=== PATIENT | male | born 1975 | race Caucasian/White ===

== ENCOUNTER → 2023-01-18 | Outpatient (CLI) | payer OTHER, SELFPAY ==
[2023-01-18 12:28] LABS: Absolute Lymphocyte Count 2.18 X10^3/uL (0.83-4.51); Absolute Neutrophil Count 3.6 X10^3/uL (2.0-7.7); Basophil# 0.07 X10^3/uL; Eosinophil# 0.33 X10^3/uL; Eosinophils% 4.8 % (0-5); Hematocrit 46.9 % (40-54); Hemoglobin 16.1 g/dL (13.0-16.5); Lymphocyte # 2.18 X10^3/ul (0.83-4.51); Mean Corp Hgb Conc 34.3 g/dL (32-36); Mean Corpuscular Hgb 31.8 pg (27.0-32.0); Mean Corpuscular Volume 92.7 fL (80-94); Mean Platelet Vol. 10.7 fl (6.2-12.0); Monocyte# 0.58 X10^3/uL; Monocyte% 8.5 % (0-10); NRBC Flagged by Analyzer 0 % (0-5); Neutrophil # 3.64 X10^3/uL (2.7-7.7); Neutrophil % 53.6 % (47-70); Platelet Count 315 K/mm3 (150-450); RBC Distribution Width SD 41.4 fl (35.1-43.9); Red Blood Count 5.06 M/mm3 (4.6-6.2); White Blood Count 6.8 K/mm3 (4.4-11.0)
[2023-01-18 13:02] LABS: Vitamin B12 535 pg/mL (211-911); Vitamin D,25 Hydroxy 33.3 ng/mL
[2023-01-18 13:06] LABS: Hemoglobin A1c 5.4 % (3.8-5.6)
[2023-01-18 13:34] LABS: ALB/GLOB Ratio 1.1 RATIO (0.9-2.4); AST(SGOT) 23 U/L (15-37); Alanine Aminotransfer ALT/SGPT 31 U/L (16-61); Albumin, Serum 3.8 g/dL (3.2-5.0); Alkaline Phosphatase 80 U/L (45-117); Anion Gap 6 (5-15); BUN 14 mg/dL (7-18); BUN/Creat Ratio 10.1 RATIO (10-20); Calcium,Total 9.6 mg/dL (8.5-10.1); Chloride 108 mmol/L (98-107); Cholesterol 220 mg/dL (200); Creatinine, Serum 1.38 mg/dL (0.70-1.30); EST Glomerular Filtration Rate 58 mL/min (>60); Est Glom Filt Rate - Afr Amer 70 mL/min (>60); Globulin 3.6 g/dL (2.2-4.2); Glucose 111 mg/dL (74-106); High Density Lipoprotein 37 mg/dL; Magnesium 2.1 mg/dL (1.6-2.6); Potassium 3.9 mmol/L (3.5-5.1); Protein, Total 7.4 g/dL (6.4-8.2); Sodium Level 140 mmol/L (136-145); Thyroid Stim Hormone (TSH) 1.87 uIU/mL (0.358-3.74); Triglycerides 100 mg/dL; Very Low Density Lipoprotein 20 mg/dL (5-40)
== END | disposition home or self-care (01) ==
PROVIDERS: PCP Family Medicine; Referring Provider Family Medicine; Visit Provider Family Medicine
DX: Z00.00 Encounter for general adult medical examination without abnormal findings (principal)
CPT/HCPCS: 36415; 80053; 80061; 82306; 82607; 83036; 83735; 84443; 85025

== ENCOUNTER → 2024-01-04 | Outpatient (CLI) | payer OTHER, SELFPAY ==
--- NOTE | 2024-01-04 05:59 | ECHOD_ITS ---
Reason For Study: PAFIB Procedure This was a 2D Doppler, Color Flow transthoracic echocardiogram. Exam performed in department. Left Ventricle Normal LV size. Left ventricular systolic function is normal. The estimated ejection fraction is 60 %. No regional wall motion abnormalities noted. Right Ventricle Normal RV size. Normal systolic function. Atria Normal left atrium. Normal right atrium. Mitral Valve Equivocal mitral valve prolapse. Tricuspid Valve Normal tricuspid valve. Aortic Valve Trisinus/trileaflet aortic valve. Pulmonic Valve Normal pulmonic valve. Great Vessels Normal aortic root. The pulmonary artery is normal size. Normal inferior vena cava. Pericardium/Pleural No pericardial effusion. MMode/2D Measurements & Calculations LVIDd: 5.1 cm IVSd: 1.2 cm Ao root diam: 4.2 cm LVIDs: 3.3 cm LVPWd: 0.78 cm FS: 35.2 % LAV(MOD-bp): 34.7 ml LVAd ap4: 34.2 cm2 SV(MOD-sp4): 63.0 ml LAV(MOD-bp) Indexed: 13.5 ml/m2 LVLd ap4: 9.3 cm LAV(MOD-sp2): 45.4 ml EDV(MOD-sp4): 104.4 ml LAV(MOD-sp4): 26.2 ml EDV(sp4-el): 107.5 ml LVAs ap4: 19.3 cm2 LVLs ap4: 7.7 cm ESV(MOD-sp4): 41.3 ml ESV(sp4-el): 41.5 ml EF(MOD-sp4): 60.4 % EF(sp4-el): 61.4 % SV(sp4-el): 66.1 ml LA A4 area: 12.9 cm2 LA dimension(2D): 3.9 cm RA A4 area: 13.4 cm2 TAPSE: 2.1 cm Time Measurements MV dec time: 0.23 sec Doppler Measurements & Calculations MV E max seven: 66.2 cm/sec Lat Peak E' Seven: 12.6 cm/sec Med Peak E' Seven: 6.8 cm/sec MV A max seven: 53.9 cm/sec E/E' lat: 5.3 E/E' med: 9.8 MV E/A: 1.2 MV V2 max: 68.4 cm/sec Ao V2 max: 125.8 cm/sec MV max P.9 mmHg MV dec slope: 282.0 cm/sec2 Ao max P.3 mmHg MV V2 mean: 47.0 cm/sec Ao V2 mean: 84.7 cm/sec MV mean P.95 mmHg Ao mean P.4 mmHg MV V2 VTI: 24.9 cm Ao V2 VTI: 27.2 cm AV (velocity ratio): 0.97 LV V1 max: 114.5 cm/sec PA V2 max: 89.5 cm/sec TR max seven: 229.6 cm/sec LV V1 max P.2 mmHg PA V2 mean: 63.1 cm/sec TR max P.1 mmHg LV V1 mean P.9 mmHg LV V1 mean: 79.0 cm/sec LV V1 VTI: 26.5 cm ECHO/Echo Complete Interpretation Summary Normal LV size. Left ventricular systolic function is normal. The estimated ejection fraction is 60 %. Equivocal mitral valve prolapse. Ordering Physician: Connie Toro Referring Physician: Connie Toro Performed By: Ramona Stacy RCS
--- NOTE | 2024-01-04 17:50 | STRESSREP_ITS ---
Stress Test Report Exercise myocardial perfusion stress test. 48-year-old man with history of chest pain Stress protocol: Resting EKG demonstrates normal sinus rhythm with a rate of 72 bpm resting blood pressure is 126/88 mmHg. The patient exercised according to the regular [place] protocol for a total duration of 9 minutes and 30 seconds attaining a maximum h eart rate of [150 ] bpm which was 88% of maximum predicted heart rate; the maximum workload was 11.9 metabolic equivalents. At rest there were no ST or T wave changes noted to suggest ischemia and at peak exercise upsloping ST changes only were noted which did not meet the criteria for ischemia. No clinical angina was noted the test was terminated due to the target heart rate being achieved/fatigue. The peak blood pressure was 160/70 mmHg. Rate-pressure product was 23,000. Myocardial perfusion protocol. 15 mCi of technetium 99m sestamibi was injected at rest. The patient exercised according to regular [facility] protocol for total duration of 9-1/2 minutes and at peak exercise 45.0 mCi of technetium 99m sestamibi was injected stress images were obtained stress and rest images were reconstructed in comparing the short axis vertical long and horizontal long axis. Gated images were also obtained. Perfusion SPECT analysis: Review of the stress images demonstrate normal uptake of tracer noted in all areas of the myocardium. The resting images similarly demonstrate normal uptake of tracer noted in all areas of the myocardium. No areas of reversibility are noted to suggest ischemia no previous infarct was noted. Gated SPECT analysis: The gated ejection fraction is 69%. Conclusion: Normal exercise myocardial perfusion stress test at a high workload Preserved ejection fraction.
== END | disposition home or self-care (01) ==
PROVIDERS: PCP Family Medicine; Referring Provider Nurse Practitioner Gerontology; Visit Provider Nurse Practitioner Gerontology
DX: I48.0 Paroxysmal atrial fibrillation (principal); Z79.899 Other long term (current) drug therapy; I34.1 Nonrheumatic mitral (valve) prolapse
CPT/HCPCS: 78452; 93017; 93306; A9500; A4216

== ENCOUNTER → 2025-07-05 | Outpatient (CLI) | payer OTHER, SELFPAY ==
--- OUTSIDE RECORDS SUMMARY | 2025-07-05 09:20 | XMS RPT_ITS | CCD ---
Author Organization [facility] Care Team Providers Care Commercial Loan Underwriter Name Role Phone Dr. Paramjit Dillard Primary Care Provider Dr. Paramjit Dillard Referring Provider Dr. Kevin Evans Attending Provider Laine Galan DO A Primary Care Provider MELANIE MOORE Attending Unavailable JOE BERMUDEZ Referring Unavailable ADAMA, LAINE A Primary Care Unavailable ADAMA, LAINE A Primary Care Unavailable ADAMA, LAINE A Primary Care Unavailable ADAMA, LAINE A Primary Care Unavailable MELANIE MOORE Attending Unavailable ADAMA, LAINE A Primary Care Unavailable JOE BERMUDEZ Attending Unavailable MELANIE MOORE Referring Unavailable ADAMA, LAINE A Primary Care Unavailable Adama, Laine Referring Unavailable Adama, Laine Attending Unavailable Adama, Laine Primary Care Unavailable Medications Current Medications Medication Drug Class(es) Dates Sig (Normalized) Sig (Original) flecainide acetate 100 mg oral tablet (13 sources) Antiarrhythmic Start: 01-04-2018 End: 10-24-2022 take 100 mg by mouth twice daily Flecainide Active 100 MG PO TWICE A DAY 180 October 24, 2022 11:22am Start: 08-25-2013 End: 01-04-2018 take 200 mg by mouth twice daily Flecainide Discontinued 200 MG PO TWICE A DAY August 25, 2013 1:00am January 04, 2018 4:12pm take 50 mg by mouth twice daily FLECAINIDE ACETATE (FLECAINIDE ORAL) Take 50 mg by mouth two times a day. Active FLECAINIDE ACETA TE (FLECAINIDE ORAL) Take by mouth. 0 Active metoprolol tartrate 50 mg oral tablet (13 sources) beta-Adrenergic Lam Start: 08-25-2013 End: 10-17-2022 take 50 mg by mouth twice daily Metoprolol Tartrate Active 50 MG PO TWICE A DAY 180 October 17, 2022 5:44pm metoprolol tartr ate, short acting, (LOPRESSOR) 100 mg tablet Take 25 mg by mouth two times a day. Active End: 05-06-2024 METOPROLOL SUCCINATE ORAL Ta ke by mouth. 05/06/2024 Discontinued (Discontinued by Patient) METOPROLOL SUCCI JOSE ALEJANDRO ORAL Take by mouth. Active METOPROLOL SUCCI JOSE ALEJANDRO ORAL Take by mouth. 0 Active Completed/Discontinued Medications Medication Drug Class(es) Dates Sig (Normalized) Sig (Original) aspirin 325 mg oral tablet (1 source) Platelet Aggregation Inhibitor, Nonsteroidal Anti-inflammatory Drug Start: 11-09-2013 End: 10-14-2021 take 325 mg by mouth once daily Aspirin Discontinued 325 MG PO DAILY@0800 November 09, 2013 12:00am October 14, 2021 5:18pm calcium chloride 0.0014 meq/ml / potassium chloride 0.004 meq/ml / sodium chloride 0.103 meq/ml / sodium lactate 0.028 meq/ml injectable solution (1 source) Start: 08-19-2024 End: 08-19-2024 take 30 mL intravenously every hour 30 mL/hr, INTRAVENOUS, CONTINUOUS, Starting on Mon08/19/24 at 1030, Until Mon08/19/24 at 1117, Preprocedure cephalexin 500 mg oral capsule (2 sources) Cephalosporin Antibacterial Start: 02-05-2024 End: 02-10-2024 take 1 capsule by mouth four times daily cephALEXin (KEFLEX) 500 mg capsule Take 1 capsule by mouth four times daily for 5 days. 20 capsule 02/05/2024 02/10/2024 codeine phosphate 2 mg/ml / guaiFENesin 20 mg/ml oral solution (3 sources) Opioid Agonist Start: 09-18-2014 End: 05-06-2024 take 5-10 mL by mouth every six hours as needed for cough and cough codeine-guaiFENesi n (ROBITUSSIN AC) 10-100 mg/5 mL syrup Indications: Cough Take 5-10 mL by mouth four times daily as needed for Cough. May cause drowsiness. 120 mL 0 09/18/2014 05/06/2024 Discontinued (Discontinued by Patient) diphenhydrAMINE (1 source) Histamine-1 Receptor Antagonist Start: 08-19-2024 End: 08-19-2024 12.5-50 mg, INTRAVENOUS, DIRECTED, Starting on Mon08/19/24 at 1100, Until Mon08/19/24 at 1459, DOSING DIRECTED BY PHYSICIAN FOR PROCEDURAL SEDATION ONLY, Intraprocedure 1 ml fentaNYL 0.05 mg/ml injection (1 source) Opioid Agonist Start: 08-19-2024 End: 08-19-2024 25-100 mcg, INTRAVENOUS, DIRECTED, Starting on Mon08/19/24 at 1100, Until Mon08/19/24 at 1459, DOSING DIRECTED BY PHYSICIAN FOR PROCEDURAL SEDATION ONLY, Intraprocedure ibuprofen 200 mg oral tablet (1 source) Nonsteroidal Anti-inflammatory Drug Start: 11-09-2013 End: 01-01-2018 take 800 mg by mouth every six hours as needed Ibuprofen Discontinued 800 MG PO EVERY 6 HOURS NEEDED November 09, 2013 1:20pm January 01, 2018 10:30am 5 ml midazolam 1 mg/ml injection (1 source) Benzodiazepine Start: 08-19-2024 End: 08-19-2024 1-5 mg, INTRAVENOUS, DIRECTED, Starting on Mon08/19/24 at 1100, Until Mon08/19/24 at 1459, DOSING DIRECTED BY PHYSICIAN FOR PROCEDURAL SEDATION ONLY, Intraprocedure naproxen 500 mg oral tablet (3 sources) Nonsteroidal Anti-inflammatory Drug Start: 09-13-2015 End: 05-06-2024 take 1 tablet by mouth every twelve hours as needed naproxen (NAPROSYN) 500 mg tablet Take 1 tablet by mouth twice daily as needed (for pain/inflammation) . Take with food. 60 tablet 0 09/13/2015 05/06/2024 Discontinued (Discontinued by Patient) polyethylene glycol 3350 220485 mg / potassium chloride 2970 mg / sodium bicarbonate 6740 mg / sodium chloride 5860 mg / sodium sulfate 59915 mg powder for oral solution (1 source) Osmotic Laxative Start: 05-03-2024 End: 05-03-2024 peg 3350-Electrolytes (GOLYTELY) 236-22.74-6.74 -5.86 gram suspension Indications: Encounter for screening for malignant neoplasm of colon Take 4,000 mL by mouth one time only for 1 dose. Refer to printed prep instructions from your provider. 4000 mL 05/03/2024 05/03/2024 Problems Active Problems Problem Classification Problem Date Documented Da te Episodic/Chronic Cardiac dysrhythmias (1 source) Paroxysmal atrial fibrillation; Translations: [Paroxysmal atrial fibrillation] 05-03-2019 Chronic Disorders of lipid metabolism (1 source) Hyperlipidemia; Translations: [Hyperlipidemia, unspecified] 01-04-2018 Chronic Heart valve disorders (1 source) Mitral valve prolapse; Translations: [Nonrheumatic mitral (valve) prolapse] 01-01-2018 Chronic Other aftercare (1 source) H/O: high risk medication; Translations: [Other orthopedic mechanic (current) drug therapy] 01-01-2018 Episodic Other and unspecified benign neoplasm (1 source) Polyp of colon; Translations: [Polyp of colon, unspecified part of colon, unspecified type] Onset: 08-29-2024 Episodic Other injuries and conditions due to external causes (2 sources) Splinter in skin; Translations: [Other injury of unspecified body region, initial encounter] 02-05-2024 Episodic Other male genital disorders (1 source) Male erectile dysfunction, unspecified; Translations: [Male erectile dysfunction, unspecified] Onset: 07-02-2025 Chronic Other screening for suspected conditions (not mental disorders or infectious disease) (7 sources) Patient encounter status; Translations: [Encounter for screening for malignant neoplasm of colon] Onset: 08-19-2024 05-03-2024 Episodic Other upper respiratory infections (1 source) Acute upper respiratory infection; Translations: [Acute upper respiratory infection, unspecified] 10-20-2024 Episodic Residual codes; unclassified (1 source) Not up to date with immunizations; Translations: [Not up to date with diphtheria-tetanus vaccination] 02-05-2024 Episodic Past or Other Problems Problem Classification Problem Date Documented Da te Episodic/Chronic Other injuries and conditions due to external causes (1 source) Other injury of unspecified body region, initial encounter; Translations: [Splinter] Onset: 02-05-2024 Episodic Results Test Name Value Interpretation Reference Range Facility [facility] 10-20-2024 CNOV Office Visit (UCWSTR ) RICHIE VALIENTE ([id number]) 1975 M Date Time Provider Department 10/20/24 2:15 PM CHRISTINE MARRERO [facility] During your visit today, we recorded the following information about you: Temperature Pulse Respiration Blood pressure 97.9 degrees 65/minute 18/minute 120/78 Weight 134.4 kg Christine Marrero, MOLLY.PACS ADMINISTRATOR 10/20/2024 2:25 PM Signed CC: Patient presents with: Cough: Light headed, congestion, sob x 2 days HPI: Richie Valiente is a 48 year old male who presents to the office with complaint of chest congestion, head congestion, and cough, nonproductive for 2 days. Symptoms are staying the same. Associated symptoms includes nasal congestion and light headed. Denies body aches, sore throat, wheezing, dyspnea, fatigue, nausea, vomiting , and diarrhea. Treatments tried include nothing so far. with no relief of symptoms. Sick contacts: unknown. History of asthma, frequent episodes of bronchitis, chronic bronchitis, bronchiectasis or COPD: No The ROS is otherwise negative. The patient's pmh, medications, allergies, and past visits are reviewed. PHYSICAL EXAM: BP 120/78 Pulse 65 Temp 36.6 ?C (97.9 ?F) Resp 18 Wt 134.4 kg (296 lb 4.8 oz) SpO2 98% BMI 38.04 kg/m? General appearance: alert, cooperative, pleasant, in no acute distress Head: Normocephalic Eyes: EOM's intact, conjunctiva pink and moist, no icterus, sclera white, non-injected Ears: Right ear: External ear/canal- Normal, TM - clear with good landmarks. Left ear: External ear/canal- Normal, TM - clear with good landmarks Oropharynx:moist without lesions, No erythema, exudates or tonsillar hypertrophy. Heart: Negative. RRR without obvious murmur, gallop, or rubs. No ectopy. Lungs: clear to auscultation, without rales or wheeze, good air exchange PAST MEDICAL HISTORY Diagnosis Date Atrial fibrillation (HCC) MVP (mitral valve prolapse) PAST SURGICAL HISTORY Procedure Laterality Date SEPTOPLASTY ALLERGIES Patient has no known allergies. MEDICATIONS metoprolol tartrate, short acting, (LOPRESSOR) 100 mg tablet Take 25 mg by mouth two times a day. FLECAINIDE ACETATE (FLECAINIDE ORAL) Take 50 mg by mouth two times a day. FAMILY HISTORY Problem Relation Age of Onset other (oth) Mother diverticulosis Colon Polyps Father No Known Problems Brother Social History Tobacco Use Smoking status: Former Types: Cigarettes Vaping Use Vaping status: Never Used Substance Use Topics Alcohol use: Yes Comment: 3-4 times a week. Drug use: Never ASSESSMENT/PLAN: 1. URI, acute - ICD9: 465.9, ICD10: J06.9 Supportive therapy at this time. Does not want viral testing.. Potential red flag symptoms discussed with the patient. Reviewed appropriate action plan to take if red flag symptoms occur. Patient agreeable to treatment plan. Christine Marrero APRN.PACS ADMINISTRATOR Allergies As of Date: 10/20/2024 (No Known Allergies) Date Reviewed: 10/20/2024 Reviewed by: Rose Casiano MA - Fully Assessed Reason for Visit: Cough [28] Cmt: Light headed, congestion, sob x 2 days Primary Visit Diagnosis:URI, acute [J06.9] Prescriptions as of 10/20/2024 - metoprolol tartrate, short acting, (LOPRESSOR) 100 mg tablet Take 25 mg by mouth two times a day. - FLECAINIDE ACETATE (FLECAINIDE ORAL) Take 50 mg by mouth two times a day. Problem List As Of Date 10/20/2024 Noted Resolved Encounter for screening for malignant neoplasm *08/19/2024 Encounter Status:Closed by CHRISTINE MARRERO on 10/20/24 [facility] [id number] 08-19-2024 [id number] HNO ID: [id number] Author: LORAINE SANTANA RN Service: ? Author Type: Registered Nurse Type: [id number] Filed: 09/05/2024 10:24 Note Text: The patient received a copy of Colonoscopy discharge instructions that contain information for how to contact the physician who performed the procedure and when to seek medical care. Normal [facility] Colonoscopyon 08-19-2024 Colonoscopy [place] [facility] Gastrointestinal Endoscopy Patient Name: Richie Valiente Procedure Date: 08/19/2024 10:41 AM Date of : 1975 Admit Type: Outpatient Age: 48 Gender: Male Note Status: Finalized Procedure: Colonoscopy Indications: Screening for colorectal malignant neoplasm Providers: Joe Bermudez MD Patient Profile: This is a 48 year old male. Refer to note in patient chart for documentation of history and physical. Last Colonoscopy: none. The patient's first colonoscopy is today. Referring Physician: Melanie Moore (Referring MD) Medicines: Fentanyl 100 micrograms IV, Midazolam 5 mg IV, Diphenhydramine 50 mg IV Complications: No immediate complications. Estimated blood loss: Minimal. Requesting Provider: Procedure: Pre-Anesthesia Assessment: - Prior to the procedure, a History and Physical was performed, and patient medications and allergies were reviewed. The patient's tolerance of previous anesthesia was also reviewed. The risks and benefits of the procedure and the sedation options and risks were discussed with the patient. All questions were answered, and informed consent was obtained. Prior Anticoagulants: The patient has taken no anticoagulant or antiplatelet agents. ASA Grade Assessment: III - A patient with severe systemic disease. After reviewing the risks and benefits, the patient was deemed in satisfactory condition to undergo the procedure. After I obtained informed consent, the scope was passed under direct vision. Throughout the procedure, the patient's blood pressure, pulse, and oxygen saturations were monitored continuously. The Colonoscope was introduced through the anus and advanced to the cecum, identified by appendiceal orifice and ileocecal valve. The colonoscopy was performed without difficulty. The patient tolerated the procedure well. The quality of the bowel preparation was fair. The ileocecal valve, appendiceal orifice, and rectum were photographed. Moderate Sedation: The administration of moderate sedation was initiated at 10:47. Moderate (conscious) sedation was personally administered by the endoscopist. The following parameters were monitored: oxygen saturation, heart rate, blood pressure, respiratory rate, EKG, adequacy of pulmonary ventilation, and response to care. Total physician intraservice time was 36 minutes. Findings: The perianal and digital rectal examinations were normal. Pertinent negatives include normal sphincter tone. Two sessile polyps were found in the rectum and sigmoid colon. The polyps were small (4-6 mm) in size. These polyps were removed with a jumbo cold forceps. Resection and retrieval were complete. Non-bleeding internal hemorrhoids were found during retroflexion. The hemorrhoids were mild and small. The exam was otherwise without abnormality. Impression: - Preparation of the colon was fair. - Two small (4-6 mm) polyps in the rectum and in the sigmoid colon, removed with a jumbo cold forceps. Resected and retrieved. - Non-bleeding internal hemorrhoids. - The examination was otherwise normal. Recommendation: - Patient has a contact number available for emergencies. The signs and symptoms of potential delayed complications were discussed with the patient. Return to normal activities tomorrow. Written discharge instructions were provided to the patient. - Resume previous diet. - Continue present medications. - Await pathology results. - Repeat colonoscopy in 5 years for surveillance. - Return to nurse practitioner at appointment to be scheduled. Procedure Code(s): --- Professional --- 99410, Colonoscopy, flexible; with biopsy, single or multiple G0500, Moderate sedation services provided by the same physician or other qualified health care transitions manager performing a gastrointestinal endoscopic service that sedation supports, requiring the presence of an independent trained observer to assist in the monitoring of the patient's level of consciousness and physiological status; initial 15 minutes of intra-service time; patient age 5 years or older (additional time may be reported with 37159, as appropriate) 54534, Moderate sedation; each additional 15 minutes intraservice time Diagnosis Code(s): --- Professional --- Z12.11, Encounter for screening for malignant neoplasm of colon K64.8, Other hemorrhoids D12.8, Benign neoplasm of rectum D12.5, Benign neoplasm of sigmoid colon CPT copyright 2020 [employer]. All rights reserved. The codes documented in this report are preliminary and upon nurses supervisor review may be revised to meet current compliance requirements. Attending Participation: I personally performed the entire procedure. Scope In: 10:50:58 AM Scope Out: 11:03:02 AM MD Joe Kinney MD 08/19/2024 11:06:20 AM This report has been signed electronically by Joe Bermudez MD Number (more content not included)... Normal [facility] Colonoscopy Study observatio non 08-19-2024 [place] [facility] Gastrointestinal Endoscopy Patient Name: Richie Valiente Procedure Date: 08/19/2024 10:41 AM Date of : 1975 Admit Type: Outpatient Age: 48 Gender: Male Note Status: Finalized Procedure: Colonoscopy Indications: Screening for colorectal malignant neoplasm Providers: Joe Bermudez MD Patient Profile: This is a 48 year old male. Refer to note in patient chart for documentation of history and physical. Last Colonoscopy: none. The patient's first colonoscopy is today. Referring Physician: Melanie Moore (Referring MD) Medicines: Fentanyl 100 micrograms IV, Midazolam 5 mg IV, Diphenhydramine 50 mg IV Complications: No immediate complications. Estimated blood loss: Minimal. Requesting Provider: Procedure: Pre-Anesthesia Assessment: - Prior to the procedure, a History and Physical was performed, and patient medications and allergies were reviewed. The patient's tolerance of previous anesthesia was also reviewed. The risks and benefits of the procedure and the sedation options and risks were discussed with the patient. All questions were answered, and informed consent was obtained. Prior Anticoagulants: The patient has taken no anticoagulant or antiplatelet agents. ASA Grade Assessment: III - A patient with severe systemic disease. After reviewing the risks and benefits, the patient was deemed in satisfactory condition to undergo the procedure. After I obtained informed consent, the scope was passed under direct vision. Throughout the procedure, the patient's blood pressure, pulse, and oxygen saturations were monitored continuously. The Colonoscope was introduced through the anus and advanced to the cecum, identified by appendiceal orifice and ileocecal valve. The colonoscopy was performed without difficulty. The patient tolerated the procedure well. The quality of the bowel preparation was fair. The ileocecal valve, appendiceal orifice, and rectum were photographed. Moderate Sedation: The administration of moderate sedation was initiated at 10:47. Moderate (conscious) sedation was personally administered by the endoscopist. The following parameters were monitored: oxygen saturation, heart rate, blood pressure, respiratory rate, EKG, adequacy of pulmonary ventilation, and response to care. Total physician intraservice time was 36 minutes. Findings: The perianal and digital rectal examinations were normal. Pertinent negatives include normal sphincter tone. Two sessile polyps were found in the rectum and sigmoid colon. The polyps were small (4-6 mm) in size. These polyps were removed with a jumbo cold forceps. Resection and retrieval were complete. Non-bleeding internal hemorrhoids were found during retroflexion. The hemorrhoids were mild and small. The exam was otherwise without abnormality. Impression: - Preparation of the colon was fair. - Two small (4-6 mm) polyps in the rectum and in the sigmoid colon, removed with a jumbo cold forceps. Resected and retrieved. - Non-bleeding internal hemorrhoids. - The examination was otherwise normal. Recommendation: - Patient has a contact number available for emergencies. The signs and symptoms of potential delayed complications were discussed with the patient. Return to normal activities tomorrow. Written discharge instructions were provided to the patient. - Resume previous diet. - Continue present medications. - Await pathology results. - Repeat colonoscopy in 5 years for surveillance. - Return to nurse practitioner at appointment to be scheduled. Procedure Code(s): --- Professional --- 49726, Colonoscopy, flexible; with biopsy, single or multiple G0500, Moderate sedation services provi (more content not included)... PROVATION [facility] Radiology Study observation (narrative) [facility] HISTORY PHYSICALon HISTORY PHYSICAL HNO ID: [id number] Author: JOE BERMUDEZ MD Service: General Surgery Author Type: Physician Type: H&P Filed: 08/19/2024 10:34 Note Text: HISTORY AND PHYSICAL Richie Valiente : 1975 REFERRING PHYSICIAN: No referring provider defined for this encounter. CHIEF COMPLAINT: Patient presents with: Consult: Colonoscopy consult. HPI: Richie is a 48 year old male referred for endoscopy. Richie notes due for colon cancer screening. Richie denies abdominal pain.. Richie denies diarrhea. Richie denies constipation. Richie denies a change in bowel habits. Richie denies melena. Richie denies bright red blood per rectum. Richie denies hemorrhoids. Richie denies heartburn. Richie denies dysphagia. Richie denies a history of ulcers/ peptic ulcer disease. Denies family history of colon issues. Richie has a hx of A.Fib and MVP- he follows with [facility], last OV 07/2023. He completed a stress test 12/2023 which showed preserved EF of 69% and no ischemia. Last ECHO 12/2023, evidence of equivocal MVP. Denies CP, SOB, palpitations, syncope, dizziness, recent hospitalizations. Richie has not undergone prior endoscopy. CURRENT MEDICATIONS Current Outpatient Medications Medication Sig metoprolol tartrate, short acting, (LOPRESSOR) 100 mg tablet Take 25 mg by mouth two times a day. FLECAINIDE ACETATE (FLECAINIDE ORAL) Take 50 mg by mouth two times a day. No current facility-administered medications for this visit. ALLERGIES: Patient has no known allergies. PAST MEDICAL HISTORY PAST MEDICAL HISTORY No date: Atrial fibrillation (HCC) No date: MVP (mitral valve prolapse) PAST SURGICAL HISTORY PAST SURGICAL HISTORY No date: SEPTOPLASTY FAMILY HISTORY FAMILY HISTORY Problem Relation Age of Onset other (oth) Mother diverticulosis Colon Polyps Father No Known Problems Brother SOCIAL HISTORY Social History Tobacco Use Smoking status: Former Types: Cigarettes Vaping Use Vaping status: Never Used Substance Use Topics Alcohol use: Yes Comment: 3-4 times a week. Drug use: Never REVIEW OF SYMPTOMS: The review of systems data was entered by the nurse and reviewed by nd Nursing Notes: Claudia Gutierrez RN 05/03/2024 4:36 PM Signed REVIEW OF SYSTEMS: General: The patient denies fatigue, denies weight loss, denies weight gain, denies feeling hot, and denies feelings of cold. Eyes: The patient denies glaucoma, denies eye injury/surgery, does not wear glasses or contacts. Ear/Nose/Throat: The patient denies allergies, denies hayfever, denies ear infections, and denies bloody noses. Cardiovascular: The patient denies chest pain, denies heart disease, denies high blood pressure,denies cardiac stent, denies prior heart attack, NOTES irregular heart beat, denies high cholesterol, denies poor circulation, denies heart failure, other cardiac issues, denies claudication, denies cold feet, denies peripheral arterial stent, and NOTES MVP. Respiratory: The patient denies tuberculosis, denies pneumonia, denies frequent cough, denies pulmonary embolism, denies shortness of breath, and denies coughing up blood. Gastrointestinal: The patient denies difficulty swallowing, denies acid reflux, denies ulcers, denies vomiting, denies jaundice/hepatitis, denies gallbladder problems, denies black or tarry stools, denies hemorrhoids, denies bleeding from rectum, denies diverticulitis, denies constipation, denies diarrhea, denies loss of stool control, and denies hernias. Kidney/Bladder: The patient denies kidney stones, denies urine infections, and denies bloody urine. Skin: The patient denies a history of skin cancer, denies bleeding/changing moles, and denies a history of skin rash. Neurologic: The patient denies a history of epilepsy/convulsions, denies headaches, denies head/spinal injuries, and denies stroke/TIA. Psychiatric: The patient denies psychiatric medications, denies depression, and denies voices, denies substance abuse. Endocrine: The patient denies thyroid disorders, denies diabetes, and denies hormonal problems. Hematologic: The patient denies a history of bruising, denies bleeding, and denies anemia, denies blood clots. Infections: The patient denies a history of measles and mumps, denies rheumatic fever, and denies sexually transmitted diseases. Musculoskeletal: The patient denies back pain/injury, denies back problems, denies sciatica, denies knee/foot trouble, denies arthritis, or denies gout. When was patient's last Mammogram screening? N/A Last Colonoscopy: None DAVID Heller Billie, RN 05/03/2024 5:03 PM Signed This Nurse reviewed and provided patient with copy of written instructions. The patient verbalized understanding and was given a number for questions. Danae Tao RN PHYSICAL EXAMINATION: General: The patient is 48 year old, male well nourished, well hydrated in no acute distress. The patient (more content not included)... Normal [facility] SURGICAL PATHOLOGYon 024 CASE REPORT Normal [facility] Comment on above: Order Comment: Speci men Type: TISSUE SPECIMEN Ordering Facility: [facility] Address: [address] [place] [address] Result Comment: Surg [facility] Pathology Report Case: [id number] Authorizing Provider: Joe Bermudez MD Collected: 08/19/2024 11:00 AM Ordering Location: Ambulatory Surgery Received: 08/19/2024 11:27 AM Pathologist: Feliciano New MD Specimens: A) - Colon, Sigmoid, Polyp B) - Rectum, Polyp Performed By: #### S #### [facility] CLIA [id number] [address] [place] [address] OF [place] FINAL DIAGNOSIS Normal [facility] Comment on above: Order Comment: Speci men Type: TISSUE SPECIMEN Ordering Facility: [facility] Address: [address] [place] [address] Result Comment: A. C olon, sigmoid, polyp, polypectomy: -Hyperplastic polyp. B. Rectum, polyp, polypectomy: -Fragments of tubular adenoma. Performed By: #### S #### [facility] CLIA [id number] [address] [place] [address] STATES OF [facility] FINAL PERFORMING LAB Normal [facility] Comment on above: Order Comment: Speci men Type: TISSUE SPECIMEN Ordering Facility: [facility] Address: [address] [place] [address] Result Comment: Diag nostic interpretation performed at [facility], [address] [place] [address] CLIA# [id number] Circuit Breaker Mechanic: Deejay Abbott M.D. Performed By: #### S #### [facility] CLIA [id number] [address] [place] [address] STATES OF [place] GROSS DESCRIPTION Normal [facility] Comment on above: Order Comment: Speci men Type: TISSUE SPECIMEN Ordering Facility: [facility] Address: [address] [place] [address] Result Comment: A. C olon, Sigmoid, Polyp Received in formalin is one piece of richard-brown, soft tissue measuring 0.4 x 0.3 x 0.2 cm. Totally submitted in one cassette. B. Rectum, Polyp Received in formalin are two pieces of red-brown, soft tissue aggregating to 0.7 x 0.3 x 0.2 cm. Totally submitted in one cassette. Gross examination performed at [facility], [address] [place] [address] [facility] August 19, 2024 3:47 PM Performed By: #### S #### [facility] CLIA [id number] [address] [place] [address] [id number] [id number] [place] OF [place] CNCOon 06-26-2024 CNCO Letter Text Normal [facility] CNOVon 05-03-2024 CNOV Office Visit (GENSWS ) RICHIE VALIENTE Kenton ([id number]) 1975 M Date Time Provider Department 05/03/24 4:30 PM MELANIE MOORE During your visit today, we recorded the following information about you: Temperature Pulse Blood pressure Weight 97.2 degrees 72/minute 128/80 126.9 kg Height 1.88 m Melanie Moore APRN.CNP 05/06/2024 12:58 PM Signed HISTORY AND PHYSICAL Richie Valiente : 1975 REFERRING PHYSICIAN: No referring provider defined for this encounter. CHIEF COMPLAINT: Patient presents with: Consult: Colonoscopy consult. HPI: Richie is a 48 year old male referred for endoscopy. Richie notes due for colon cancer screening. Richie denies abdominal pain.. Richie denies diarrhea. Richie denies constipation. Richie denies a change in bowel habits. Richie denies melena. Richie denies bright red blood per rectum. Richie denies hemorrhoids. Richie denies heartburn. Richie denies dysphagia. Richie denies a history of ulcers/ peptic ulcer disease. Denies family history of colon issues. Richie has a hx of A.Fib and MVP- he follows with [facility], last OV 07/2023. He completed a stress test 12/2023 which showed preserved EF of 69% and no ischemia. Last ECHO 12/2023, evidence of equivocal MVP. Denies CP, SOB, palpitations, syncope, dizziness, recent hospitalizations. Richie has not undergone prior endoscopy. Current Outpatient Medications Medication Sig metoprolol tartrate, short acting, (LOPRESSOR) 100 mg tablet Take 25 mg by mouth two times a day. FLECAINIDE ACETATE (FLECAINIDE ORAL) Take 50 mg by mouth two times a day. No current facility-administered medications for this visit. ALLERGIES: Patient has no known allergies. PAST MEDICAL HISTORY No date: Atrial fibrillation (HCC) No date: MVP (mitral valve prolapse) PAST SURGICAL HISTORY No date: SEPTOPLASTY FAMILY HISTORY Problem Relation Age of Onset other (oth) Mother diverticulosis Colon Polyps Father No Known Problems Brother Social History Tobacco Use Smoking status: Former Types: Cigarettes Vaping Use Vaping status: Never Used Substance Use Topics Alcohol use: Yes Comment: 3-4 times a week. Drug use: Never REVIEW OF SYMPTOMS: The review of systems data was entered by the nurse and reviewed by nd Nursing Notes: Claudia Gutierrez RN 05/03/2024 4:36 PM Signed REVIEW OF SYSTEMS: General: The patient denies fatigue, denies weight loss, denies weight gain, denies feeling hot, and denies feelings of cold. Eyes: The patient denies glaucoma, denies eye injury/surgery, does not wear glasses or contacts. Ear/Nose/Throat: The patient denies allergies, denies hayfever, denies ear infections, and denies bloody noses. Cardiovascular: The patient denies chest pain, denies heart disease, denies high blood pressure,denies cardiac stent, denies prior heart attack, NOTES irregular heart beat, denies high cholesterol, denies poor circulation, denies heart failure, other cardiac issues, denies claudication, denies cold feet, denies peripheral arterial stent, and NOTES MVP. Respiratory: The patient denies tuberculosis, denies pneumonia, denies frequent cough, denies pulmonary embolism, denies shortness of breath, and denies coughing up blood. Gastrointestinal: The patient denies difficulty swallowing, denies acid reflux, denies ulcers, denies vomiting, denies jaundice/hepatitis, denies gallbladder problems, denies black or tarry stools, denies hemorrhoids, denies bleeding from rectum, denies diverticulitis, denies constipation, denies diarrhea, denies loss of stool control, and denies hernias. Kidney/Bladder: The patient denies kidney stones, denies urine infections, and denies bloody urine. Skin: The patient denies a history of skin cancer, denies bleeding/changing moles, and denies a history of skin rash. Neurologic: The patient denies a history of epilepsy/convulsions, denies headaches, denies head/spinal injuries, and denies stroke/TIA. Psychiatric: The patient denies psychiatric medications, denies depression, and denies voices, denies substance abuse. Endocrine: The patient denies thyroid disorders, denies diabetes, and denies hormonal problems. Hematologic: The patient denies a history of bruising, denies bleeding, and denies anemia, denies blood clots. Infections: The patient denies a history of measles and mumps, denies rheumatic fever, and denies sexually transmitted diseases. Musculoskeletal: The patient denies back pain/injury, denies back problems, denies sciatica, denies knee/foot trouble, denies arthritis, or denies gout. When was patient's last Mammogram screening? N/A Last Colonoscopy: None DAVID Heller Billie, RN 05/03/2024 5:03 PM Signed This Nurse reviewed and provided patient with copy of written instructions. The patient verbalized understanding an (more content not included)... Normal [facility] CNOVon 02-05-2024 CNOV Office Visit (WSTR ) RICHIE VALIENTE ([id number]) 1975 M Date Time Provider Department 02/05/24 7:45 AM ANNIE AUGUSTE [facility] During your visit today, we recorded the following information about you: Temperature Pulse Respiration Blood pressure 96.9 degrees 76/minute 16/minute 128/80 Weight 137.3 kg Annie Auguste PA 02/05/2024 8:40 AM Signed This note was created using NoteWriter. Subjective Richie Valiente is a 48 year old male. HPI 48-year-old male presents for splinter in right thumb. Patient states he was working at home on some wood and the piece of wood jammed into his right thumb. A splinter broke off under his right thumbnail. He is having pain in the area. No drainage. This happened just 30 minutes prior to arrival. No numbness or tingling of the thumb. Normal ROM of the thumb. He is right-hand dominant. Unsure of last tetanus. Did not try to pull the splinter out at home. No other complaint. No past medical history on file. No past surgical history on file. ALLERGIES Patient has no known allergies. MEDICATIONS METOPROLOL SUCCINATE ORAL Take by mouth. FLECAINIDE ACETATE (FLECAINIDE ORAL) Take by mouth. cephALEXin (KEFLEX) 500 mg capsule Take 1 capsule by mouth four times daily for 5 days. naproxen (NAPROSYN) 500 mg tablet Take 1 tablet by mouth twice daily as needed (for pain/inflammation). Take with food. (Patient not taking: Reported on 02/05/2024) codeine-guaiFENesin (ROBITUSSIN AC) 10-100 mg/5 mL syrup Take 5-10 mL by mouth four times daily as needed for Cough. May cause drowsiness. No family history on file. Social History Tobacco Use Smoking status: Former Review of Systems Constitutional: Negative for chills and fever. HENT: Negative for congestion and sore throat. Respiratory: Negative for cough and shortness of breath. Gastrointestinal: Negative for diarrhea and vomiting. Skin: Positive for wound. Negative for color change. Objective BP 128/80 Pulse 76 Temp 36.1 ?C (96.9 ?F) Resp 16 Wt (!) 137.3 kg (302 lb 11.1 oz) SpO2 97% Physical Exam Vitals and nursing note reviewed. Constitutional: General: He is not in acute distress. Appearance: Normal appearance. He is not toxic-appearing. Musculoskeletal: Right hand: Tenderness present. No bony tenderness. Normal sensation. There is no disruption of two-point discrimination. Normal capillary refill. Normal pulse. Comments: Wood splinter protruding from under the right thumb fingernail on the lateral side. Tenderness around the splinter noted. No drainage. No bleeding. Normal ROM of the digit. Cap refill less than 2 seconds. No other foreign body seen. Skin: General: Skin is warm and dry. Neurological: Mental Status: He is alert. UNIVERSAL PROTOCOL / SAFETY CHECKLIST Procedure to be Performed: removal of FB Sign In: A Moment of CARE was completed. Personnel directly involved with the procedure wore the appropriate PPE (Personal Protective Equipment). Patient/Surrogate Stated/Verified: PATIENT VERIFIED(optional for EMERGENT procedures): Patient name, Date of , Relevant allergies, and The intended procedure Time Out Communication: Intended patient and procedure match the source documents. Consent documented and matches the intended procedure. No relevant labs, photos, and/or imaging studies were applicable for review. Sign Out: SIGN OUT (optional for EMERGENT procedures): All instruments, equipment, possible retained foreign bodies accounted for. Procedure: Wound cleansed with sterile water and Hibiclens. Iodine applied. Local infiltration with 1 mL of 2% lidocaine injected around the splinter on the distal right thumb. 1 cm wood splinter removed with forceps. Area irrigated with sterile water. No retained foreign body seen on exam. XR will be performed. Patient tolerated procedure well. No bleeding, drainage, or purulence after foreign body removed. Mupirocin and dressing applied. Assessment and Plan ASSESSMENT/PLAN: 1. Splinter - ICD9: 919.6, ICD10: T14.8XXA (primary diagnosis) - Removed. Please see procedure above. Will get XR to look for retained foreign body. - XR DIGIT GENERAL 3V FRONTAL/LAT/OBL RIGHT -no radiopaque foreign body seen. -No foreign body visualized on my examination. Did discuss with patient there is possibility of a small foreign body still being under the nail that is unable to be seen. He understands. -He will follow-up if symptoms persist. -Tetanus updated. -Rx for Keflex for prophylactic antibiotic treatment due to the dirty wood/foreign body that was under the fingernail. 2. Not up to date with diphtheria-tetanus vaccination - ICD9: V49.89, ICD10: Z28.39 - TDAP administered at visit. Diagnosis and treatment plan were discussed and questions were answered to the patient's satisfaction. Pt acknowledged understanding of con (more content not included)... Normal [facility] XR DIGIT 3V FRONTAL/LAT/OBL RTon 02-05-2024 XR DIGIT 3V FRONTAL/LAT/OBL RT * * *Final Report* * * DATE OF EXAM: Feb 05 2024 8:24AM WOX [id number] - XR DIGIT 3V FRONTAL/LAT/OBL RT / PROCEDURE REASON: Splinter * * * * Physician Interpretation * * * * TITLE: XR DIGIT 3V FRONTAL/LAT/OBL RT CLINICAL INDICATION: Splinter TECHNIQUE: 3 view radiographic study of the right thumb COMPARISON: None FINDINGS: No acute fracture or dislocation identified. Joint spaces preserved. No cortical destruction or periostitis to suggest radiographic evidence of osteomyelitis. No radio opaque foreign body. IMPRESSION: No radiopaque foreign body identified noting wood is not radioopaque. No radiographic evidence of acute osseous abnormality. Crab Fisherman: [facility] Transcribe Date/Time: Feb 05 2024 8:30A Dictated by : CARMELA MOONEY MD This examination was interpreted and the report reviewed and electronically signed by: CARMELA MOONEY MD on Feb 05 2024 8:31AM EST [id number] Normal [facility] XR Finger - right AP and Lat eral and obliqueon 02-05-2024 IMPRESSION: No radiopaque foreign body identified noting wood is not radioopaque. No radiographic evidence of acute osseous abnormality. Crab Fisherman: [facility] Transcribe Date/Time: Feb 05 2024 8:30A Dictated by : CARMELA MOONEY MD This examination was interpreted and the report reviewed and electronically signed by: CARMELA MOONEY MD on Feb 05 2024 8:31AM [facility] DIVISION OF RADIOLOGY * * *Final Report* * * DATE OF EXAM: Feb 05 2024 8:24AM WOX [id number] - XR DIGIT 3V FRONTAL/LAT/OBL RT / PROCEDURE REASON: Splinter * * * * Physician Interpretation * * * * TITLE: XR DIGIT 3V FRONTAL/LAT/OBL RT CLINICAL INDICATION: Splinter TECHNIQUE: 3 view radiographic study of the right thumb COMPARISON: None FINDINGS: No acute fracture or dislocation identified. Joint spaces preserved. No cortical destruction or periostitis to suggest radiographic evidence of osteomyelitis. No radio opaque foreign body. DIVISION OF RADIOLOGY Provider, [facility] Hussain [facility] - 02/05/2024 * * *Final Report* * * DATE OF EXAM: Feb 05 2024 8:24AM WOX [id number] - XR DIGIT 3V FRONTAL/LAT/OBL RT / PROCEDURE REASON: Splinter * * * * Physician Interpretation * * * * TITLE: XR DIGIT 3V FRONTAL/LAT/OBL RT CLINICAL INDICATION: Splinter TECHNIQUE: 3 view radiographic study of the right thumb COMPARISON: None FINDINGS: No acute fracture or dislocation identified. Joint spaces preserved. No cortical destruction or periostitis to suggest radiographic evidence of osteomyelitis. No radio opaque foreign body. IMPRESSION IMPRESSION: No radiopaque foreign body identified noting wood is not radioopaque. No radiographic evidence of acute osseous abnormality. Crab Fisherman: [facility] Transcribe Date/Time: Feb 05 2024 8:30A Dictated by : CARMELA MOONEY MD This examination was interpreted and the report reviewed and electronically signed by: CARMELA MOONEY MD on Feb 05 2024 8:31AM EST [facility] Radiology Study observation (narrative) [facility] XR Finger - right AP and Lat eral and obliqueOrdered By: [facility]cf Provider on 02-05-2024 [facility] Absolute lymphocyte countOrd ered By: Dr. Galan on 01-18-2023 Lymphocytes Auto (Unsp spec) [#/Vol] 2.18 10*3/uL 0.83-4.51 [facility] Basophil percentageOrdered B y: Dr. Galan on 01-18-2023 Basophils/100 WBC (Bld) 1.0 % 0-1 [facility] Bilirubin [Mass/Vol] 0.70 mg/dL 0.20-1.00 [facility] Comment on above: For patients on eltr ombopag therapy, use of Dimension [place] TBIL is not recommended. Chloride [Moles/Vol] 108 mmol/L 98-107 [facility] Cholesterol [Mass/Vol] 220 mg/dL <200 [facility] Comment on above: <200 mg/dL Desirable 200-240 mg/dL Borderline >240 mg/dL High Risk Eosinophils/100 WBC (Bld) 4.8 % 0-5 [facility] Glucose [Mass/Vol] 111 mg/dL 74-106 [facility] Comment on above: Fasting Glucose resu lt from 100 to 125 mg/dL suggests IMPAIRED HOMEOSTASIS per A.D.A. criteria. Neutrophils (Bld) [#/Vol] 3.6 10*3/uL 2.0-7.7 [facility] Neutrophils/100 WBC (Bld) 53.6 % 47-70 [facility] Potassium [Moles/Vol] 3.9 mmol/L 3.5-5.1 [facility] Protein [Mass/Vol] 7.4 g/dL 6.4-8.2 [facility] Sodium [Moles/Vol] 140 mmol/L 136-145 [facility] Triglyceride [Mass/Vol] 100 mg/dL <199 [facility] Comment on above: The drugs N-Acetylcy steine and Metamizole may falsely depress this assay.Serum Triglycerides Reference Interval Normal <150 mg/dL Borderline high 150 - 199 mg/dL High 200 - 499 mg/dL Very High > or = 500 mg/dL WBC (Bld) [#/Vol] 6.8 10*3/uL 4.4-11.0 [facility] Blood erythrocytes count (nu mber/volume)Ordered By: Dr. Galan on 01-18-2023 RBC (Bld) [#/Vol] 5.06 10*6/uL 4.6-6.2 [facility] Blood hemoglobin measurement (mass/volume)Ordered By: Dr. Galan on 01-18-2023 Hemoglobin (Bld) [Mass/Vol] 16.1 g/dL 13.0-16.5 [facility] Blood lymphocytes/100 leukoc ytesOrdered By: Dr. Galan on 01-18-2023 Lymphocytes/100 WBC (Bld) 32.0 % 19-41 [facility] Blood monocytes/100 leukocyt esOrdered By: Dr. Galan on 01-18-2023 Monocytes/100 WBC (Bld) 8.5 % 0-10 [facility] Blood platelet mean volumeOr dered By: Dr. Galan on 01-18-2023 Platelet mean volume (Bld) [Entitic vol] 10.7 fL 6.2-12.0 [facility] Determination of erythrocyte mean corpuscular volume (MCV)Ordered By: Dr. Galan on 01-18-2023 MCV (RBC) [Entitic vol] 92.7 fL 80-94 [facility] Hematocrit Auto (Bld) [Volum e fraction]Ordered By: Dr. Galan on 01-18-2023 Hematocrit (Bld) [Volume fraction] 46.9 % 40-54 [facility] Laboratory - Chemistry and C hemistry - challengeOrdered By: Dr. Galan on 01-18-2023 ALP [Catalytic activity/Vol] 80 U/L 45-117 [facility] ALT [Catalytic activity/Vol] 31 U/L 16-61 [facility] CO2 [Moles/Vol] 26.0 mmol/L 21.0-32.0 [facility] Cobalamin (Vitamin B12) [Mass/Vol] 535 pg/mL 211-911 [facility] Globulin (S) [Mass/Vol] 3.6 g/dL 2.2-4.2 [facility] Magnesium [Mass/Vol] 2.1 mg/dL 1.6-2.6 [facility] Urea nitrogen/Creatinine [Mass ratio] 10.1 mg/mg 10-20 [facility] Laboratory - Hematology and Cell countsOrdered By: Dr. Galan on 01-18-2023 Erythrocyte distribution width (RBC) [Entitic vol] 41.4 fL 35.1-43.9 [facility] Erythrocyte distribution width (RBC) [Ratio] 12.0 % 11.6-14.6 [facility] Immature granulocytes/100 WBC (Bld) 0.100 % 0.0-0.9 [facility] Comment on above: IG% - Immature Granu locytes (promyelocytes, myelocytes and metamyelocytes) > 1% indicates that a LEFT SHIFT is Present. MCH (RBC) [Entitic mass] 31.8 pg 27.0-32.0 [facility] Nucleated RBC/100 WBC (Bld) [Ratio] 0 % 0-5 [facility] MCHC Auto (RBC) [Mass/Vol]Or dered By: Dr. Galan on 01-18-2023 MCHC (RBC) [Mass/Vol] 34.3 g/dL 32-36 [facility] No Panel InformationOrdered By: Dr. Galan on 01-18-2023 Estimated GFR (MDRD) Amer 70 mL/min >60 [facility] Comment on above: GFR Calc Estimated GFR (MDRD) Non-Af Amer 58 mL/min >60 [facility] Comment on above: Non- GFR Calc Thyroid Stimulating Hormone (TSH) 1.87 uIU/mL 0.358-3.74 [facility] Vitamin D 25-Hydroxy 33.3 ng/mL [facility] Comment on above: Vitamin D 25(OH) Sta tus Range Deficiency <20 ng/mL (50nmol/L) Insufficiency 20 - 30 ng/mL (50 - 75 nmol/L) Sufficiency 30 - 100 ng/mL (75 - 250 nmol/L) Toxicity >100 ng/mL (>250 nmol/L) Platelets bldOrdered By: Dr. Galan on 01-18-2023 Platelets (Bld) [#/Vol] 315 10*3/uL 150-450 [facility] Serum or plasma albumin bre urement (mass/volume)Ordered By: Dr. Galan on 01-18-2023 Albumin [Mass/Vol] 3.8 g/dL 3.2-5.0 [facility] Serum or plasma albumin/glob ulin mass ratioOrdered By: Dr. Galan on 01-18-2023 Albumin/Globulin [Mass ratio] 1.1 {ratio} 0.9-2.4 [facility] Serum or plasma calcium bre urement (mass/volume)Ordered By: Dr. Galan on 01-18-2023 Calcium [Mass/Vol] 9.6 mg/dL 8.5-10.1 [facility] Serum or plasma cholesterol in HDL measurement (mass/volume)Ordered By: Dr. Galan on 01-18-2023 Cholesterol in HDL [Mass/Vol] 37 mg/dL >40 [facility] Comment on above: The drugs N-Acetylcy steine and Metamizole may falsely depress this assay. Reference Range HDL <40 mg/dL Low HDL Cholesterol HDL >or= 60 mg/dL High HDL Cholesterol Serum or plasma cholesterol in VLDL measurement (mass/volume)Ordered By: Dr. Galan on 01-18-2023 Cholesterol in VLDL [Mass/Vol] 20 mg/dL 5-40 [facility] Serum or plasma creatinine m easurement (mass/volume)Ordered By: Dr. Galan on 01-18-2023 Creatinine [Mass/Vol] 1.38 mg/dL 0.70-1.30 [facility] Comment on above: The validity of the calculated GFR & GFRAA in patients over 70 years has not been determined. Clinical correlation is essential. Serum or plasma low density lipoprotein (LDL) cholesterol measurement (mass/volume)Ordered By: Dr. Galan on 01-18-2023 Cholesterol in LDL [Mass/Vol] 163 mg/dL 0-130 [facility] Serum or plasma urea nitroge n measurement (mass/volume)Ordered By: Dr. Galan on 01-18-2023 Urea nitrogen [Mass/Vol] 14 mg/dL 7-18 [facility] Thin prep Papanicolaou smear with manual screeningOrdered By: Dr. Galan on 01-18-2023 Thin prep Papanicolaou smear with manual screening 23 U/L 15-37 [facility] Thin prep Papanicolaou smear with manual screening 6 5-15 [facility] Whole blood hemoglobin A1c/t otal hemoglobin ratio (mass fraction)Ordered By: Dr. Galan on 01-18-2023 HbA1c (Bld) [Mass fraction] 5.4 % 3.8-5.6 [facility] Comment on above: Normal < 5.7 % Predi abetic 5.7 - 6.4 % Diabetic >or= 6.5 % Please note range changes. Vital Signs Date Time Vital Sign Value Performing Clinician Malcolm quiñones 10-20-2024 14:13-0500 Body mass index (BMI) [Ratio] 38.04 kg/m2 Christine Marrero APRN.CNP Work Phone: [facility] 10-20-2024 14:13-0500 Body temperature 97.9 [degF] Christine Marrero APRN.CNP Work Phone: [facility] 10-20-2024 14:13-0500 Body weight 134.4 kg Christine Marrero APRN.CNP Work Phone: [facility] 10-20-2024 14:13-0500 Diastolic blood pressure 78 mm[Hg] Christine Marrero APRN.PACS ADMINISTRATOR Work Phone: [facility] 10-20-2024 14:13-0500 Heart rate 65 /min Christine Marrero RESIDENT ATHLETIC TRAINER.PACS ADMINISTRATOR Work Phone: [facility] 10-20-2024 14:13-0500 Respiratory rate 18 /min Christine Marrero RESIDENT ATHLETIC TRAINER.PACS ADMINISTRATOR Work Phone: [facility] 10-20-2024 14:13-0500 SaO2% (BldA) [Mass fraction] 98 % Christine Marrero RESIDENT ATHLETIC TRAINER.PACS ADMINISTRATOR Work Phone: [facility] 10-20-2024 14:13-0500 Systolic blood pressure 120 mm[Hg] Christine Marrero RESIDENT ATHLETIC TRAINER.PACS ADMINISTRATOR Work Phone: [facility] 08-19-2024 11:38-0500 Heart rate 52 /min Joe Bermudez MD Work Phone: [facility] 08-19-2024 11:38-0500 Respiratory rate 16 /min Joe Bermudez MD Work Phone: [facility] 08-19-2024 11:38-0500 SaO2% (BldA) [Mass fraction] 97 % Joe Bermudez MD Work Phone: [facility] 08-19-2024 11:28-0500 Diastolic blood pressure 76 mm[Hg] Joe Bermudez MD Work Phone: [facility] 08-19-2024 11:28-0500 Systolic blood pressure 122 mm[Hg] Joe Bermudez MD Work Phone: [facility] 08-19-2024 10:40-0500 Body mass index (BMI) [Ratio] 35.92 kg/m2 Joe Bermudez MD Work Phone: [facility] 08-19-2024 10:40-0500 Body temperature 97.3 [degF] Joe Bermudez MD Work Phone: [facility] 08-19-2024 10:40-0500 Body weight 126.9 kg Joe Bermudez MD Work Phone: [facility] 05-03-2024 16:28-0400 Body height 188 cm Melanie Teresa RESIDENT ATHLETIC TRAINER.PACS ADMINISTRATOR Work Phone: [facility] 05-03-2024 16:28-0400 Body mass index (BMI) [Ratio] 35.92 kg/m2 Melanie Teresa RESIDENT ATHLETIC TRAINER.PACS ADMINISTRATOR Work Phone: [facility] 05-03-2024 16:28-0400 Body temperature 97.2 [degF] Melanie Teresa RESIDENT ATHLETIC TRAINER.PACS ADMINISTRATOR Work Phone: [facility] 05-03-2024 16:28-0400 Body weight 126.92 kg Melanie Teresa RESIDENT ATHLETIC TRAINER.PACS ADMINISTRATOR Work Phone: [facility] 05-03-2024 16:28-0400 Diastolic blood pressure 80 mm[Hg] Melanie Teresa RESIDENT ATHLETIC TRAINER.PACS ADMINISTRATOR Work Phone: [facility] 05-03-2024 16:28-0400 Heart rate 72 /min Melanie Teresa RESIDENT ATHLETIC TRAINER.PACS ADMINISTRATOR Work Phone: [facility] 05-03-2024 16:28-0400 SaO2% (BldA) [Mass fraction] 96 % Melanie Teresa RESIDENT ATHLETIC TRAINER.PACS ADMINISTRATOR Work Phone: [facility] 05-03-2024 16:28-0400 Systolic blood pressure 128 mm[Hg] Melanie Teresa RESIDENT ATHLETIC TRAINER.PACS ADMINISTRATOR Work Phone: [facility] 02-05-2024 07:36-0400 Body temperature 96.91 [degF] Krislyn Aberegg PA Work Phone: [facility] 02-05-2024 07:36-0400 Body weight 137.3 kg Krislyn Aberegg PA Work Phone: [facility] 02-05-2024 07:36-0400 Diastolic blood pressure 80 mm[Hg] Krislyn Aberegg PA Work Phone: [facility] 02-05-2024 07:36-0400 Heart rate 76 /min Krislyn Aberegg PA Work Phone: [facility] 02-05-2024 07:36-0400 Respiratory rate 16 /min Annie LUX Work Phone: [facility] 02-05-2024 07:36-0400 SaO2% (BldA) [Mass fraction] 97 % Annie LUX Work Phone: [facility] 02-05-2024 07:36-0400 Systolic blood pressure 128 mm[Hg] Annie LUX Work Phone: [facility] Encounters Encounter Date Encounter Type Care Provider Facility Start: 07-04-2025 ambulatory [facility] Facility: [facility] Start: 10-20-2024 End: 10-20-2024 ambulatory [facility] Facility:[facility] Start: 10-20-2024 End: 10-20-2024 Patient encounter procedure Christine Marrero APRN.PACS ADMINISTRATOR Work Phone: [facility] Comment on above: URI, acute (Primary Dx) Start: 08-29-2024 End: 08-29-2024 ambulatory MELANIE MOORE Facility:[facility] Start: 08-19-2024 End: 08-19-2024 ambulatory JOE BERMUDEZ Facility:[facility] Start: 08-19-2024 End: 08-19-2024 Subsequent hospital visit by physician Joe Bermudez MD Work Phone: Ambulatory Surgery Comment on above: Encounter for screen ing for malignant neoplasm of colon [Z12.11] Start: 05-03-2024 End: 05-03-2024 ambulatory MELANIE TERESA Facility:[facility] Start: 05-03-2024 End: 05-03-2024 Patient encounter procedure Melanie Teresa RESIDENT ATHLETIC TRAINER.PACS ADMINISTRATOR Work Phone: General Surgery Comment on above: Encounter for screen ing for malignant neoplasm of colon (Primary Dx) Start: 02-05-2024 End: 02-05-2024 Subsequent hospital visit by physician Lalito [facility] Michael Work Phone: Radiology Comment on above: Splinter [T14.8XXA] Start: 02-05-2024 End: 02-05-2024 ambulatory [facility] Facility:[facility] Start: 02-05-2024 End: 02-05-2024 Patient encounter procedure Annie LUX Work Phone: [facility] Comment on above: Splinter (Primary Dx ); Not up to date with diphtheria-tetanus vaccination Start: 01-18-2023 End: 01-18-[address] Paramjit Dillard Work Phone: [facility] Work Phone: Start: 01-18-2023 End: 01-18-[address] Paramjit Dillard Work Phone: [facility] Start: 01-18-2023 End: 01-18-[address] Paramjit Dillard Work Phone: [facility] Procedures Date Procedure Procedure Detail Performing Clinician Start: 08-19-2024 Colonoscopy flx dx w /collj spec when pfrmd Melanie Moore APRN.PACS ADMINISTRATOR Work Phone: Start: 08-19-2024 Colonoscopy Joe villanueva MD Work Phone: Start: 02-05-2024 Radex fingr minimum 2 views Annie LUX Work Phone: Plan of Treatment Date Care Activity Detail Author Start: 02-04-2034 Urine microalbumin profile DTaP,Tdap,Td Vaccine (2 - Td or Tdap) [facility] Start: 08-19-2025 Screening for malign ant neoplasm of colon [facility] Start: 08-29-2024 End: 08-29-2024 Follow-up encounter 08/29/2024 9:30 AM [facility] [address] [place] [address] Melanie Moore APRN.PACS ADMINISTRATOR [address] [place], [place] [id number] 08-19 colonoscopy follow up General Surgery Comment on above: 08-19 colonoscopy fo llow up Start: 04-28-2024 Covid-19 Vaccine ( season) Covid-19 Vaccine () [facility] Start: 04-28-2024 Covid-19 Vaccine ( season) Covid-19 Vaccine ( season) [facility] Start: 04-28-2024 Influenza vaccination C [facility] Start: 11-23-2023 Pneumococcal Vaccine : 50+ (1 of 1 - PCV) Pneumococcal Vaccine: 50+ (1 of 1 - PCV) [facility] Start: 11-23-2023 Shingrix Vaccine (1 of 2) Shingrix Vaccine (1 of 2) [facility] Start: 08-28-2023 Behavioral Health Screening Behavioral Health Screening [facility] Start: 04-28-2023 Covid-19 Vaccine ( season) Covid-19 Vaccine () [facility] Start: 2018 Diabetes Screening Diabetes Screenin g [facility] Start: 2018 Screening for malign ant neoplasm of colon [facility] Start: 2008 Lipid panel Lipid Screening [facility] Start: 1992 Hepatitis B Vaccine (1 of 3 - 19+ 3-dose series) Hepatitis B Vaccine (1 of 3 - 19+ 3-dose series) [facility] Start: 11-23-1991 Anxiety Screening Anxiety Screening [facility] Start: 11-23-1991 Depression Screening Depression Scre ening [facility] Start: 11-23-1991 Hepatitis C screening Hepatitis C Sc reening [facility] Start: 11-23-1991 HIV screening HIV Screening [facility] End: 05-03-2025 Screening colonoscopy COLONOSCOPY SCREENING Endoscopy Routine Encounter for screening for malignant neoplasm of colon 1 Occurrences starting 05/03/2024 until 05/03/2025 [facility] Work Phone: Comment on above: 1 Occurrences starti ng 05/03/2024 until 05/03/2025 SURGICAL PATHOLOGY [facility] Work Phone: Comment on above: Release Upon Familiain g for 1 Occurrences starting 08/19/2024, 1 completed Immunizations Immunization Date Immunization Notes Care Provider Tj horton 02-05-2024 tetanus toxoid, redu shamika diphtheria toxoid, and acellular pertussis vaccine, adsorbed Annie LUX Work Phone: [facility] Payers Date Payer Category Payer Self-pay [id number] 2021 Private Health Insurance MMO SU[employer] PPO [id number] 2021 Unknown MMO MMO [employer] PPO [id number] 2021-Present [phone] [address] [place] [id number] PPO [id number] 2021 Unknown [id number] 2006 Unknown [facility] [id number] [place] [id number] Unknown [id number] Social History Date Type Detail Facility Start: 10-14-2021 [facility] Start: 1975 Sex Assigned At Male [facility] Start: 09-18-2014 End: 05-03-2024 Tobacco smoking status NHIS Ex-smoker [facility] History of tobacco use Current smoker [facility] Start: 02-05-2024 [facility] Start: 02-05-2024 End: 05-03-2024 History of Social function [facility] Start: 02-05-2024 End: 05-03-2024 Tobacco use panel [facility] Start: 1975 Sex Assigned At Not on file [facility] History of tobacco use Cigarette Smoker [facility] Start: 05-03-2024 Alcoholic beverage intake Current drinker of alcohol (finding) [facility] National Score (1-10 0), lower number is lower risk 66 [facility] Start: 05-03-2024 Alcohol Comment 3-4 times a week. [facility] Functional Status Date Assessment Result Facility 09-18-2014 Are you deaf, or do you have serious difficulty hearing No 09/18/2014 8:19 AM Selam Colin MA No [facility] 09-18-2014 Are you blind, or do you have serious difficulty seeing, even when wearing glasses No 09/18/2014 8:19 AM Selam Colin MA No [facility] 09-18-2014 Do you have serious difficulty walking or climbing stairs No 09/18/2014 8:19 AM Selam Colin MA No [facility] 09-18-2014 Do you have difficul ty dressing or bathing No 09/18/2014 8:19 AM Selam Colin MA No [facility] 09-18-2014 Because of a physica l, mental, or emotional condition, do you have difficulty doing errands alone such as visiting a physician's office or shopping No 09/18/2014 8:19 AM Selam Colin MA No [facility] Mental Status Date Assessment Result Facility 09-18-2014 Because of a physica l, mental, or emotional condition, do you have serious difficulty concentrating, remembering, or making decisions No 09/18/2014 8:19 AM Selam Colin MA No [facility] Clinical Notes 02-05-2024 to 10-20-2024 Christine Marrero APRN.PACS ADMINISTRATOR - 10/20/2024 2:19 PM Joe Saha MD - 08/19/2024 11:00 AM Joe Saha MD - 08/19/2024 11:00 AM Danae Fung RN - 05/03/2024 5:02 PM EDT Note Date & Type Note Facility 10-20-2024 Note HNO ID: [id number] Author: CHRISTINE MARRERO APRN.PACS ADMINISTRATOR Service: ? Author Type: Nurse Practitioner Type: Progress Notes Filed: 10/20/2024 14:25 Note Text: CC: Patient presents with: Cough: Light headed, congestion, sob x 2 days HPI: Richie Valiente is a 48 year old male who presents to the office with complaint of chest congestion, head congestion, and cough, nonproductive for 2 days. Symptoms are staying the same. Associated symptoms includes nasal congestion and light headed. Denies body aches, sore throat, wheezing, dyspnea, fatigue, nausea, vomiting , and diarrhea. Treatments tried include nothing so far. with no relief of symptoms. Sick contacts: unknown. History of asthma, frequent episodes of bronchitis, chronic bronchitis, bronchiectasis or COPD: No The ROS is otherwise negative. The patient's pmh, medications, allergies, and past visits are reviewed. PHYSICAL EXAM: BP 120/78 Pulse 65 Temp 36.6 ?C (97.9 ?F) Resp 18 Wt 134.4 kg (296 lb 4.8 oz) SpO2 98% BMI 38.04 kg/m? General appearance: alert, cooperative, pleasant, in no acute distress Head: Normocephalic Eyes: EOM's intact, conjunctiva pink and moist, no icterus, sclera white, non-injected Ears: Right ear: External ear/canal- Normal, TM - clear with good landmarks. Left ear: External ear/canal- Normal, TM - clear with good landmarks Oropharynx:moist without lesions, No erythema, exudates or tonsillar hypertrophy. Heart: Negative. RRR without obvious murmur, gallop, or rubs. No ectopy. Lungs: clear to auscultation, without rales or wheeze, good air exchange PAST MEDICAL HISTORY Diagnosis Date Atrial fibrillation (HCC) MVP (mitral valve prolapse) PAST SURGICAL HISTORY Procedure Laterality Date SEPTOPLASTY ALLERGIES Patient has no known allergies. MEDICATIONS metoprolol tartrate, short acting, (LOPRESSOR) 100 mg tablet Take 25 mg by mouth two times a day. FLECAINIDE ACETATE (FLECAINIDE ORAL) Take 50 mg by mouth two times a day. FAMILY HISTORY Problem Relation Age of Onset other (oth) Mother diverticulosis Colon Polyps Father No Known Problems Brother Social History Tobacco Use Smoking status: Former Types: Cigarettes Vaping Use Vaping status: Never Used Substance Use Topics Alcohol use: Yes Comment: 3-4 times a week. Drug use: Never ASSESSMENT/PLAN: 1. URI, acute - ICD9: 465.9, ICD10: J06.9 Supportive therapy at this time. Does not want viral testing.. Potential red flag symptoms discussed with the patient. Reviewed appropriate action plan to take if red flag symptoms occur. Patient agreeable to treatment plan. Christine Marrero APRN.[facility] 10-20-2024 History of Present illness Narrative CC: Patient presents with: Cough: Light headed, congestion, sob x 2 days HPI: Richie Valiente is a 48 year old male who presents to the office with complaint of chest congestion, head congestion, and cough, nonproductive for 2 days. Symptoms are staying the same. Associated symptoms includes nasal congestion and light headed. Denies body aches, sore throat, wheezing, dyspnea, fatigue, nausea, vomiting , and diarrhea. Treatments tried include nothing so far. with no relief of symptoms. Sick contacts: unknown. History of asthma, frequent episodes of bronchitis, chronic bronchitis, bronchiectasis or COPD: No The ROS is otherwise negative. The patient's pmh, medications, allergies, and past visits are reviewed. PHYSICAL EXAM: BP 120/78 Pulse 65 Temp 36.6 C (97.9 F) Resp 18 Wt 134.4 kg (296 lb 4.8 oz) SpO2 98% BMI 38.04 kg/m General appearance: alert, cooperative, pleasant, in no acute distress Head: Normocephalic Eyes: EOM's intact, conjunctiva pink and moist, no icterus, sclera white, non-injected Ears: Right ear: External ear/canal- Normal, TM - clear with good landmarks. Left ear: External ear/canal- Normal, TM - clear with good landmarks Oropharynx:moist without lesions, No erythema, exudates or tonsillar hypertrophy. Heart: Negative. RRR without obvious murmur, gallop, or rubs. No ectopy. Lungs: clear to auscultation, without rales or wheeze, good air exchange PAST MEDICAL HISTORY Diagnosis Date Atrial fibrillation (HCC) MVP (mitral valve prolapse) PAST SURGICAL HISTORY Procedure Laterality Date SEPTOPLASTY ALLERGIES Patient has no known allergies. MEDICATIONS metoprolol tartrate, short acting, (LOPRESSOR) 100 mg tablet Take 25 mg by mouth two times a day. FLECAINIDE ACETATE (FLECAINIDE ORAL) Take 50 mg by mouth two times a day. FAMILY HISTORY Problem Relation Age of Onset other (oth) Mother diverticulosis Colon Polyps Father No Known Problems Brother Social History Tobacco Use Smoking status: Former Types: Cigarettes Vaping Use Vaping status: Never Used Substance Use Topics Alcohol use: Yes Comment: 3-4 times a week. Drug use: Never ASSESSMENT/PLAN: 1. URI, acute - ICD9: 465.9, ICD10: J06.9 Supportive therapy at this time. Does not want viral testing.. Potential red flag symptoms discussed with the patient. Reviewed appropriate action plan to take if red flag symptoms occur. Patient agreeable to treatment plan. Christine Marrero APRN.PACS ADMINISTRATOR documented in this encounter [facility] 08-29-2024 Note HNO ID: [id number] Author: MELANIE MOORE APRN.JACQUES Service: ? Author Type: Nurse Practitioner Type: Progress Notes Filed: 08/29/2024 09:32 Note Text: FOLLOW UP VISIT - ENDOSCOPY Richie Valiente 1975 [id number] REFERRING PHYSICIAN: [address] [facility] [address] Richie Valiente is a patient I am following for screening colonoscopy. Dr. Bermudez performed lower endoscopy on 08/19/24. The patient was found to have Impression: - Preparation of the colon was fair. - Two small (4-6 mm) polyps in the rectum and in the sigmoid colon, removed with a jumbo cold forceps. Resected and retrieved. - Non-bleeding internal hemorrhoids. - The examination was otherwise normal. Pathology demonstrated: FINAL DIAGNOSIS A. Colon, sigmoid, polyp, polypectomy: -Hyperplastic polyp. B. Rectum, polyp, polypectomy: -Fragments of tubular adenoma. The patient notes no complaints since the procedure. VITALS: There were no vitals taken for this visit. General: patient is alert, cooperative, pleasant and in no acute distress Assessment ASSESSMENT/PLAN: 1. Polyps of colon, unspecified part of colon, unspecified type - ICD9: 211.3, ICD10: K63.5 The operative findings and pathology report were reviewed with the patient, and the patient has had the opportunity to ask questions and have questions answered. If the patient notes any problems or changes in bowel function, the patient should contact me immediately. Otherwise I recommend follow up endoscopy in 5 years. HM updated and recall letter generated. Discussed treatment plan and patient voices understanding. Patient's questions answered appropriately. Medications and potential side effects were discussed and patient voices understanding. Return to the office as scheduled or as needed for worsening/no improvement. Melanie Moore APRN.[facility] 08-19-2024 History and physical note HISTORY AND PHYSICAL Richie Fung [place] : 1975 REFERRING PHYSICIAN: No referring provider defined for this encounter. CHIEF COMPLAINT: Patient presents with: Consult: Colonoscopy consult. HPI: Richie is a 48 year old male referred for endoscopy. Richie notes due for colon cancer screening. Richie denies abdominal pain.. Richie denies diarrhea. Richie denies constipation. Richie denies a change in bowel habits. Richie denies melena. Richie denies bright red blood per rectum. Richie denies hemorrhoids. Richie denies heartburn. Richie denies dysphagia. Richie denies a history of ulcers/ peptic ulcer disease. Denies family history of colon issues. Richie has a hx of A.Fib and MVP- he follows with [facility], last OV 07/2023. He completed a stress test 12/2023 which showed preserved EF of 69% and no ischemia. Last ECHO 12/2023, evidence of equivocal MVP. Denies CP, SOB, palpitations, syncope, dizziness, recent hospitalizations. Richie has not undergone prior endoscopy. CURRENT MEDICATIONS Current Outpatient Medications Medication Sig metoprolol tartrate, short acting, (LOPRESSOR) 100 mg tablet Take 25 mg by mouth two times a day. FLECAINIDE ACETATE (FLECAINIDE ORAL) Take 50 mg by mouth two times a day. No current facility-administered medications for this visit. ALLERGIES: Patient has no known allergies. PAST MEDICAL HISTORY PAST MEDICAL HISTORY No date: Atrial fibrillation (HCC) No date: MVP (mitral valve prolapse) PAST SURGICAL HISTORY PAST SURGICAL HISTORY No date: SEPTOPLASTY FAMILY HISTORY FAMILY HISTORY Problem Relation Age of Onset other (oth) Mother diverticulosis Colon Polyps Father No Known Problems Brother SOCIAL HISTORY Social History Tobacco Use Smoking status: Former Types: Cigarettes Vaping Use Vaping status: Never Used Substance Use Topics Alcohol use: Yes Comment: 3-4 times a week. Drug use: Never REVIEW OF SYMPTOMS: The review of systems data was entered by the nurse and reviewed by nd Nursing Notes: Claudia Gutierrez RN 05/03/2024 4:36 PM Signed REVIEW OF SYSTEMS: General: The patient denies fatigue, denies weight loss, denies weight gain, denies feeling hot, and denies feelings of cold. Eyes: The patient denies glaucoma, denies eye injury/surgery, does not wear glasses or contacts. Ear/Nose/Throat: The patient denies allergies, denies hayfever, denies ear infections, and denies bloody noses. Cardiovascular: The patient denies chest pain, denies heart disease, denies high blood pressure,denies cardiac stent, denies prior heart attack, NOTES irregular heart beat, denies high cholesterol, denies poor circulation, denies heart failure, other cardiac issues, denies claudication, denies cold feet, denies peripheral arterial stent, and NOTES MVP. Respiratory: The patient denies tuberculosis, denies pneumonia, denies frequent cough, denies pulmonary embolism, denies shortness of breath, and denies coughing up blood. Gastrointestinal: The patient denies difficulty swallowing, denies acid reflux, denies ulcers, denies vomiting, denies jaundice/hepatitis, denies gallbladder problems, denies black or tarry stools, denies hemorrhoids, denies bleeding from rectum, denies diverticulitis, denies constipation, denies diarrhea, denies loss of stool control, and denies hernias. Kidney/Bladder: The patient denies kidney stones, denies urine infections, and denies bloody urine. Skin: The patient denies a history of skin cancer, denies bleeding/changing moles, and denies a history of skin rash. Neurologic: The patient denies a history of epilepsy/convulsions, denies headaches, denies head/spinal injuries, and denies stroke/TIA. Psychiatric: The patient denies psychiatric medications, denies depression, and denies voices, denies substance abuse. Endocrine: The patient denies thyroid disorders, denies diabetes, and denies hormonal problems. Hematologic: The patient denies a history of bruising, denies bleeding, and denies anemia, denies blood clots. Infections: The patient denies a history of measles and mumps, denies rheumatic fever, and denies sexually transmitted diseases. Musculoskeletal: The patient denies back pain/injury, denies back problems, denies sciatica, denies knee/foot trouble, denies arthritis, or denies gout. When was patient's last Mammogram screening? N/A Last Colonoscopy: None DAVID Heller Billie, RN 05/03/2024 5:03 PM Signed This Nurse reviewed and provided patient with copy of written instructions. The patient verbalized understanding and was given a number for questions. Danae Tao RN PHYSICAL EXAMINATION: General: The patient is 48 year old, male well nourished, well hydrated in no acute distress. The patient is oriented to time, place, and person. VITALS: Blood pressure 128/80, pulse 72, temperature 36.2 C (97.2 F), height 188 cm (6' 2"), weight 126.9 kg (279 lb 12.8 oz), SpO2 96%. Body mass index is 35.92 kg/m . HEENT: Normal cephalic, ataumatic, pupils are equally round, sclera are anicteric, mucous membranes are moist, oropharynx is clear. Neck has no masses, asymmetry or lymphadenopathy. Respiratory: Clear to auscultation and percussion. Normal respiratory excursion and pattern. Cardiac: Examination is regular rate and rhythm. Normal S1/S2 Abdominal exam: Soft, nontender, with no palpable masses. No hepatosplenomegaly. No palpable hernias. Extremities: no clubbing, cyanosis or edema. No adenopathy. LABORATORY VALUES: As Noted RADIOLOGIC STUDIES: As Noted Assessment IMPRESSION: screen for colon cancer PLAN: I have reviewed my findings with the surgeon. Will plan for lower endoscopy. We discussed the risks and benefits of the planned endoscopy. I have informed the patient that complications can occur including failure to complete the endoscopy and perforation. Richie had the opportunity to ask questions concerning the planned endoscopy. My staff has also explained the procedure to the patient in understandable terms and has given the patient printed material concerning the procedure. Richie freely consents to surgery. I plan to use Golytely bowel preparation I have explained to the patient the difference between IV conscious sedation and MAC anesthesia - and I have offered either, according to the patient's wishes. I have explained that with IV conscious sedation there is no anesthesia provider available and therefore there is a limitation of the amount of IV medications that can be given and that the patient may wake up in the middle of the procedure and/or experience pain/discomfort during the procedure. Further discussion was done and the patient was given the opportunity to ask questions and all questions were answered. Richie chooses IV conscious sedation Richie was counseled that if there are changes in his/her medical condition, to let the office know if surgery should proceed. If there are changes in patient's medical condition from time of this encounter to the day of the procedure that preclude anesthesia, patient may have procedure cancelled for patient's safety. Diagnoses: (Z12.11) Encounter for screening for malignant neoplasm of colon (primary encounter diagnosis) Portions of this documentation were copied and pasted from previous office visit notes in order to provide a cohesive continuity of the history. The note has been reviewed and edited and updated as necessary. Melanie Moore APRN.CNP UPDATED HISTORY AND PHYSICAL EXAMINATION SERVICE DATE: 08/19/2024 SERVICE TIME: 10:34 AM PHYSICAL EXAM MUST BE COMPLETED ON ADMISSION The History and Physical (completed in the past 30 days) has been reviewed and the patient has been examined. The contents accurately reflect the patient's condition with the following additions or revisions since the H&P was completed. Examination indicates no changes. This H&P can be found in the attached. SIGNATURE: Joe Bermudez III, MD PATIENT NAME: Richie Valiente DATE: August 19, 2024 TIME: 10:34 AM [facility] 08-19-2024 History and physical note HISTORY AND PHYSICAL Richie Valiente : 1975 REFERRING PHYSICIAN: No referring provider defined for this encounter. CHIEF COMPLAINT: Patient presents with: Consult: Colonoscopy consult. HPI: Richie is a 48 year old male referred for endoscopy. Richie notes due for colon cancer screening. Richie denies abdominal pain.. Richie denies diarrhea. Richie denies constipation. Richie denies a change in bowel habits. Richie denies melena. Richie denies bright red blood per rectum. Richie denies hemorrhoids. Richie denies heartburn. Richie denies dysphagia. Richie denies a history of ulcers/ peptic ulcer disease. Denies family history of colon issues. Richie has a hx of A.Fib and MVP- he follows with [facility], last OV 07/2023. He completed a stress test 12/2023 which showed preserved EF of 69% and no ischemia. Last ECHO 12/2023, evidence of equivocal MVP. Denies CP, SOB, palpitations, syncope, dizziness, recent hospitalizations. Richie has not undergone prior endoscopy. CURRENT MEDICATIONS Current Outpatient Medications Medication Sig metoprolol tartrate, short acting, (LOPRESSOR) 100 mg tablet Take 25 mg by mouth two times a day. FLECAINIDE ACETATE (FLECAINIDE ORAL) Take 50 mg by mouth two times a day. No current facility-administered medications for this visit. ALLERGIES: Patient has no known allergies. PAST MEDICAL HISTORY PAST MEDICAL HISTORY No date: Atrial fibrillation (HCC) No date: MVP (mitral valve prolapse) PAST SURGICAL HISTORY PAST SURGICAL HISTORY No date: SEPTOPLASTY FAMILY HISTORY FAMILY HISTORY Problem Relation Age of Onset other (oth) Mother diverticulosis Colon Polyps Father No Known Problems Brother SOCIAL HISTORY Social History Tobacco Use Smoking status: Former Types: Cigarettes Vaping Use Vaping status: Never Used Substance Use Topics Alcohol use: Yes Comment: 3-4 times a week. Drug use: Never REVIEW OF SYMPTOMS: The review of systems data was entered by the nurse and reviewed by me Nursing Notes: Claudia Gutierrez RN 05/03/2024 4:36 PM Signed REVIEW OF SYSTEMS: General: The patient denies fatigue, denies weight loss, denies weight gain, denies feeling hot, and denies feelings of cold. Eyes: The patient denies glaucoma, denies eye injury/surgery, does not wear glasses or contacts. Ear/Nose/Throat: The patient denies allergies, denies hayfever, denies ear infections, and denies bloody noses. Cardiovascular: The patient denies chest pain, denies heart disease, denies high blood pressure,denies cardiac stent, denies prior heart attack, NOTES irregular heart beat, denies high cholesterol, denies poor circulation, denies heart failure, other cardiac issues, denies claudication, denies cold feet, denies peripheral arterial stent, and NOTES MVP. Respiratory: The patient denies tuberculosis, denies pneumonia, denies frequent cough, denies pulmonary embolism, denies shortness of breath, and denies coughing up blood. Gastrointestinal: The patient denies difficulty swallowing, denies acid reflux, denies ulcers, denies vomiting, denies jaundice/hepatitis, denies gallbladder problems, denies black or tarry stools, denies hemorrhoids, denies bleeding from rectum, denies diverticulitis, denies constipation, denies diarrhea, denies loss of stool control, and denies hernias. Kidney/Bladder: The patient denies kidney stones, denies urine infections, and denies bloody urine. Skin: The patient denies a history of skin cancer, denies bleeding/changing moles, and denies a history of skin rash. Neurologic: The patient denies a history of epilepsy/convulsions, denies headaches, denies head/spinal injuries, and denies stroke/TIA. Psychiatric: The patient denies psychiatric medications, denies depression, and denies voices, denies substance abuse. Endocrine: The patient denies thyroid disorders, denies diabetes, and denies hormonal problems. Hematologic: The patient denies a history of bruising, denies bleeding, and denies anemia, denies blood clots. Infections: The patient denies a history of measles and mumps, denies rheumatic fever, and denies sexually transmitted diseases. Musculoskeletal: The patient denies back pain/injury, denies back problems, denies sciatica, denies knee/foot trouble, denies arthritis, or denies gout. When was patient's last Mammogram screening? N/A Last Colonoscopy: None DAVID Heller Billie, RN 05/03/2024 5:03 PM Signed This Nurse reviewed and provided patient with copy of written instructions. The patient verbalized understanding and was given a number for questions. Danae Tao RN PHYSICAL EXAMINATION: General: The patient is 48 year old, male well nourished, well hydrated in no acute distress. The patient is oriented to time, place, and person. VITALS: Blood pressure 128/80, pulse 72, temperature 36.2 C (97.2 F), height 188 cm (6' 2"), weight 126.9 kg (279 lb 12.8 oz), SpO2 96%. Body mass index is 35.92 kg/m . HEENT: Normal cephalic, ataumatic, pupils are equally round, sclera are anicteric, mucous membranes are moist, oropharynx is clear. Neck has no masses, asymmetry or lymphadenopathy. Respiratory: Clear to auscultation and percussion. Normal respiratory excursion and pattern. Cardiac: Examination is regular rate and rhythm. Normal S1/S2 Abdominal exam: Soft, nontender, with no palpable masses. No hepatosplenomegaly. No palpable hernias. Extremities: no clubbing, cyanosis or edema. No adenopathy. LABORATORY VALUES: As Noted RADIOLOGIC STUDIES: As Noted Assessment IMPRESSION: screen for colon cancer PLAN: I have reviewed my findings with the surgeon. Will plan for lower endoscopy. We discussed the risks and benefits of the planned endoscopy. I have informed the patient that complications can occur including failure to complete the endoscopy and perforation. Richie had the opportunity to ask questions concerning the planned endoscopy. My staff has also explained the procedure to the patient in understandable terms and has given the patient printed material concerning the procedure. Richie freely consents to surgery. I plan to use Golytely bowel preparation I have explained to the patient the difference between IV conscious sedation and MAC anesthesia - and I have offered either, according to the patient's wishes. I have explained that with IV conscious sedation there is no anesthesia provider available and therefore there is a limitation of the amount of IV medications that can be given and that the patient may wake up in the middle of the procedure and/or experience pain/discomfort during the procedure. Further discussion was done and the patient was given the opportunity to ask questions and all questions were answered. Richie chooses IV conscious sedation Richie was counseled that if there are changes in his/her medical condition, to let the office know if surgery should proceed. If there are changes in patient's medical condition from time of this encounter to the day of the procedure that preclude anesthesia, patient may have procedure cancelled for patient's safety. Diagnoses: (Z12.11) Encounter for screening for malignant neoplasm of colon (primary encounter diagnosis) Portions of this documentation were copied and pasted from previous office visit notes in order to provide a cohesive continuity of the history. The note has been reviewed and edited and updated as necessary. Melanie Moore APRN.PACS ADMINISTRATOR UPDATED HISTORY AND PHYSICAL EXAMINATION SERVICE DATE: 08/19/2024 SERVICE TIME: 10:34 AM PHYSICAL EXAM MUST BE COMPLETED ON ADMISSION The History and Physical (completed in the past 30 days) has been reviewed and the patient has been examined. The contents accurately reflect the patient's condition with the following additions or revisions since the H&P was completed. Examination indicates no changes. This H&P can be found in the attached. SIGNATURE: Joe Bermudez III, MD PATIENT NAME: Richie Valiente DATE: August 19, 2024 TIME: 10:34 AM documented in this encounter [facility] 05-03-2024 Nurse Note This Nurse reviewed and provided patient with copy of written instructions. The patient verbalized understanding and was given a number for questions. Danae Tao RN [facility] 05-03-2024 Nurse Note This Nurse reviewed and provided patient with copy of written instructions. The patient verbalized understanding and was given a number for questions. Danae Tao RN REVIEW OF SYSTEMS: General: The patient denies fatigue, denies weight loss, denies weight gain, denies feeling hot, and denies feelings of cold. Eyes: The patient denies glaucoma, denies eye injury/surgery, does not wear glasses or contacts. Ear/Nose/Throat: The patient denies allergies, denies hayfever, denies ear infections, and denies bloody noses. Cardiovascular: The patient denies chest pain, denies heart disease, denies high blood pressure,denies cardiac stent, denies prior heart attack, NOTES irregular heart beat, denies high cholesterol, denies poor circulation, denies heart failure, other cardiac issues, denies claudication, denies cold feet, denies peripheral arterial stent, and NOTES MVP. Respiratory: The patient denies tuberculosis, denies pneumonia, denies frequent cough, denies pulmonary embolism, denies shortness of breath, and denies coughing up blood. Gastrointestinal: The patient denies difficulty swallowing, denies acid reflux, denies ulcers, denies vomiting, denies jaundice/hepatitis, denies gallbladder problems, denies black or tarry stools, denies hemorrhoids, denies bleeding from rectum, denies diverticulitis, denies constipation, denies diarrhea, denies loss of stool control, and denies hernias. Kidney/Bladder: The patient denies kidney stones, denies urine infections, and denies bloody urine. Skin: The patient denies a history of skin cancer, denies bleeding/changing moles, and denies a history of skin rash. Neurologic: The patient denies a history of epilepsy/convulsions, denies headaches, denies head/spinal injuries, and denies stroke/TIA. Psychiatric: The patient denies psychiatric medications, denies depression, and denies voices, denies substance abuse. Endocrine: The patient denies thyroid disorders, denies diabetes, and denies hormonal problems. Hematologic: The patient denies a history of bruising, denies bleeding, and denies anemia, denies blood clots. Infections: The patient denies a history of measles and mumps, denies rheumatic fever, and denies sexually transmitted diseases. Musculoskeletal: The patient denies back pain/injury, denies back problems, denies sciatica, denies knee/foot trouble, denies arthritis, or denies gout. When was patient's last Mammogram screening? N/A Last Colonoscopy: None Claudia Gutierrez RN documented in this encounter [facility] 05-03-2024 Nurse Note REVIEW OF SYSTEMS: General: The patient denies fatigue, denies weight loss, denies weight gain, denies feeling hot, and denies feelings of cold. Eyes: The patient denies glaucoma, denies eye injury/surgery, does not wear glasses or contacts. Ear/Nose/Throat: The patient denies allergies, denies hayfever, denies ear infections, and denies bloody noses. Cardiovascular: The patient denies chest pain, denies heart disease, denies high blood pressure,denies cardiac stent, denies prior heart attack, NOTES irregular heart beat, denies high cholesterol, denies poor circulation, denies heart failure, other cardiac issues, denies claudication, denies cold feet, denies peripheral arterial stent, and NOTES MVP. Respiratory: The patient denies tuberculosis, denies pneumonia, denies frequent cough, denies pulmonary embolism, denies shortness of breath, and denies coughing up blood. Gastrointestinal: The patient denies difficulty swallowing, denies acid reflux, denies ulcers, denies vomiting, denies jaundice/hepatitis, denies gallbladder problems, denies black or tarry stools, denies hemorrhoids, denies bleeding from rectum, denies diverticulitis, denies constipation, denies diarrhea, denies loss of stool control, and denies hernias. Kidney/Bladder: The patient denies kidney stones, denies urine infections, and denies bloody urine. Skin: The patient denies a history of skin cancer, denies bleeding/changing moles, and denies a history of skin rash. Neurologic: The patient denies a history of epilepsy/convulsions, denies headaches, denies head/spinal injuries, and denies stroke/TIA. Psychiatric: The patient denies psychiatric medications, denies depression, and denies voices, denies substance abuse. Endocrine: The patient denies thyroid disorders, denies diabetes, and denies hormonal problems. Hematologic: The patient denies a history of bruising, denies bleeding, and denies anemia, denies blood clots. Infections: The patient denies a history of measles and mumps, denies rheumatic fever, and denies sexually transmitted diseases. Musculoskeletal: The patient denies back pain/injury, denies back problems, denies sciatica, denies knee/foot trouble, denies arthritis, or denies gout. When was patient's last Mammogram screening? N/A Last Colonoscopy: None Claudia Gutierrez RN [facility] 05-03-2024 History of Present illness Narrative HISTORY AND PHYSICAL Richie Butterfieldh : 1975 REFERRING PHYSICIAN: No referring provider defined for this encounter. CHIEF COMPLAINT: Patient presents with: Consult: Colonoscopy consult. HPI: Richie is a 48 year old male referred for endoscopy. Richie notes due for colon cancer screening. Richie denies abdominal pain.. Richie denies diarrhea. Richie denies constipation. Richie denies a change in bowel habits. Richie denies melena. Richie denies bright red blood per rectum. Richei denies hemorrhoids. Richie denies heartburn. Richie denies dysphagia. Richie denies a history of ulcers/ peptic ulcer disease. Denies family history of colon issues. Richie has a hx of A.Fib and MVP- he follows with [facility], last OV 07/2023. He completed a stress test 12/2023 which showed preserved EF of 69% and no ischemia. Last ECHO 12/2023, evidence of equivocal MVP. Denies CP, SOB, palpitations, syncope, dizziness, recent hospitalizations. Richie has not undergone prior endoscopy. Current Outpatient Medications Medication Sig metoprolol tartrate, short acting, (LOPRESSOR) 100 mg tablet Take 25 mg by mouth two times a day. FLECAINIDE ACETATE (FLECAINIDE ORAL) Take 50 mg by mouth two times a day. No current facility-administered medications for this visit. ALLERGIES: Patient has no known allergies. PAST MEDICAL HISTORY No date: Atrial fibrillation (HCC) No date: MVP (mitral valve prolapse) PAST SURGICAL HISTORY No date: SEPTOPLASTY FAMILY HISTORY Problem Relation Age of Onset other (oth) Mother diverticulosis Colon Polyps Father No Known Problems Brother Social History Tobacco Use Smoking status: Former Types: Cigarettes Vaping Use Vaping status: Never Used Substance Use Topics Alcohol use: Yes Comment: 3-4 times a week. Drug use: Never REVIEW OF SYMPTOMS: The review of systems data was entered by the nurse and reviewed by me Nursing Notes: Claudia Gutierrez RN 05/03/2024 4:36 PM Signed REVIEW OF SYSTEMS: General: The patient denies fatigue, denies weight loss, denies weight gain, denies feeling hot, and denies feelings of cold. Eyes: The patient denies glaucoma, denies eye injury/surgery, does not wear glasses or contacts. Ear/Nose/Throat: The patient denies allergies, denies hayfever, denies ear infections, and denies bloody noses. Cardiovascular: The patient denies chest pain, denies heart disease, denies high blood pressure,denies cardiac stent, denies prior heart attack, NOTES irregular heart beat, denies high cholesterol, denies poor circulation, denies heart failure, other cardiac issues, denies claudication, denies cold feet, denies peripheral arterial stent, and NOTES MVP. Respiratory: The patient denies tuberculosis, denies pneumonia, denies frequent cough, denies pulmonary embolism, denies shortness of breath, and denies coughing up blood. Gastrointestinal: The patient denies difficulty swallowing, denies acid reflux, denies ulcers, denies vomiting, denies jaundice/hepatitis, denies gallbladder problems, denies black or tarry stools, denies hemorrhoids, denies bleeding from rectum, denies diverticulitis, denies constipation, denies diarrhea, denies loss of stool control, and denies hernias. Kidney/Bladder: The patient denies kidney stones, denies urine infections, and denies bloody urine. Skin: The patient denies a history of skin cancer, denies bleeding/changing moles, and denies a history of skin rash. Neurologic: The patient denies a history of epilepsy/convulsions, denies headaches, denies head/spinal injuries, and denies stroke/TIA. Psychiatric: The patient denies psychiatric medications, denies depression, and denies voices, denies substance abuse. Endocrine: The patient denies thyroid disorders, denies diabetes, and denies hormonal problems. Hematologic: The patient denies a history of bruising, denies bleeding, and denies anemia, denies blood clots. Infections: The patient denies a history of measles and mumps, denies rheumatic fever, and denies sexually transmitted diseases. Musculoskeletal: The patient denies back pain/injury, denies back problems, denies sciatica, denies knee/foot trouble, denies arthritis, or denies gout. When was patient's last Mammogram screening? N/A Last Colonoscopy: None DAVID Heller Billie, RN 05/03/2024 5:03 PM Signed This Nurse reviewed and provided patient with copy of written instructions. The patient verbalized understanding and was given a number for questions. Danae Tao RN PHYSICAL EXAMINATION: General: The patient is 48 year old, male well nourished, well hydrated in no acute distress. The patient is oriented to time, place, and person. VITALS: Blood pressure 128/80, pulse 72, temperature 36.2 C (97.2 F), height 188 cm (6' 2"), weight 126.9 kg (279 lb 12.8 oz), SpO2 96%. Body mass index is 35.92 kg/m . HEENT: Normal cephalic, ataumatic, pupils are equally round, sclera are anicteric, mucous membranes are moist, oropharynx is clear. Neck has no masses, asymmetry or lymphadenopathy. Respiratory: Clear to auscultation and percussion. Normal respiratory excursion and pattern. Cardiac: Examination is regular rate and rhythm. Normal S1/S2 Abdominal exam: Soft, nontender, with no palpable masses. No hepatosplenomegaly. No palpable hernias. Extremities: no clubbing, cyanosis or edema. No adenopathy. LABORATORY VALUES: As Noted RADIOLOGIC STUDIES: As Noted Assessment IMPRESSION: screen for colon cancer PLAN: I have reviewed my findings with the surgeon. Will plan for lower endoscopy. We discussed the risks and benefits of the planned endoscopy. I have informed the patient that complications can occur including failure to complete the endoscopy and perforation. Richie had the opportunity to ask questions concerning the planned endoscopy. My staff has also explained the procedure to the patient in understandable terms and has given the patient printed material concerning the procedure. Richie freely consents to surgery. I plan to use Golytely bowel preparation I have explained to the patient the difference between IV conscious sedation and MAC anesthesia - and I have offered either, according to the patient's wishes. I have explained that with IV conscious sedation there is no anesthesia provider available and therefore there is a limitation of the amount of IV medications that can be given and that the patient may wake up in the middle of the procedure and/or experience pain/discomfort during the procedure. Further discussion was done and the patient was given the opportunity to ask questions and all questions were answered. Richie chooses IV conscious sedation Richie was counseled that if there are changes in his/her medical condition, to let the office know if surgery should proceed. If there are changes in patient's medical condition from time of this encounter to the day of the procedure that preclude anesthesia, patient may have procedure cancelled for patient's safety. Diagnoses: (Z12.11) Encounter for screening for malignant neoplasm of colon (primary encounter diagnosis) Portions of this documentation were copied and pasted from previous office visit notes in order to provide a cohesive continuity of the history. The note has been reviewed and edited and updated as necessary. Melanie Moore APRN.CNP documented in this encounter [facility] 05-03-2024 Note HNO ID: [id number] Author: MELANIE MOORE APRN.CNP Service: ? Author Type: Nurse Practitioner Type: Progress Notes Filed: 05/06/2024 12:58 Note Text: HISTORY AND PHYSICAL Richie Valiente : 1975 REFERRING PHYSICIAN: No referring provider defined for this encounter. CHIEF COMPLAINT: Patient presents with: Consult: Colonoscopy consult. HPI: Richie is a 48 year old male referred for endoscopy. Richie notes due for colon cancer screening. Richie denies abdominal pain.. Richie denies diarrhea. Richie denies constipation. Richie denies a change in bowel habits. Richie denies melena. Richie denies bright red blood per rectum. Richie denies hemorrhoids. Richie denies heartburn. Richie denies dysphagia. Richie denies a history of ulcers/ peptic ulcer disease. Denies family history of colon issues. Richie has a hx of A.Fib and MVP- he follows with [facility], last OV 07/2023. He completed a stress test 12/2023 which showed preserved EF of 69% and no ischemia. Last ECHO 12/2023, evidence of equivocal MVP. Denies CP, SOB, palpitations, syncope, dizziness, recent hospitalizations. Richie has not undergone prior endoscopy. Current Outpatient Medications Medication Sig metoprolol tartrate, short acting, (LOPRESSOR) 100 mg tablet Take 25 mg by mouth two times a day. FLECAINIDE ACETATE (FLECAINIDE ORAL) Take 50 mg by mouth two times a day. No current facility-administered medications for this visit. ALLERGIES: Patient has no known allergies. PAST MEDICAL HISTORY No date: Atrial fibrillation (HCC) No date: MVP (mitral valve prolapse) PAST SURGICAL HISTORY No date: SEPTOPLASTY FAMILY HISTORY Problem Relation Age of Onset other (oth) Mother diverticulosis Colon Polyps Father No Known Problems Brother Social History Tobacco Use Smoking status: Former Types: Cigarettes Vaping Use Vaping status: Never Used Substance Use Topics Alcohol use: Yes Comment: 3-4 times a week. Drug use: Never REVIEW OF SYMPTOMS: The review of systems data was entered by the nurse and reviewed by nd Nursing Notes: Claudia Gutierrez RN 05/03/2024 4:36 PM Signed REVIEW OF SYSTEMS: General: The patient denies fatigue, denies weight loss, denies weight gain, denies feeling hot, and denies feelings of cold. Eyes: The patient denies glaucoma, denies eye injury/surgery, does not wear glasses or contacts. Ear/Nose/Throat: The patient denies allergies, denies hayfever, denies ear infections, and denies bloody noses. Cardiovascular: The patient denies chest pain, denies heart disease, denies high blood pressure,denies cardiac stent, denies prior heart attack, NOTES irregular heart beat, denies high cholesterol, denies poor circulation, denies heart failure, other cardiac issues, denies claudication, denies cold feet, denies peripheral arterial stent, and NOTES MVP. Respiratory: The patient denies tuberculosis, denies pneumonia, denies frequent cough, denies pulmonary embolism, denies shortness of breath, and denies coughing up blood. Gastrointestinal: The patient denies difficulty swallowing, denies acid reflux, denies ulcers, denies vomiting, denies jaundice/hepatitis, denies gallbladder problems, denies black or tarry stools, denies hemorrhoids, denies bleeding from rectum, denies diverticulitis, denies constipation, denies diarrhea, denies loss of stool control, and denies hernias. Kidney/Bladder: The patient denies kidney stones, denies urine infections, and denies bloody urine. Skin: The patient denies a history of skin cancer, denies bleeding/changing moles, and denies a history of skin rash. Neurologic: The patient denies a history of epilepsy/convulsions, denies headaches, denies head/spinal injuries, and denies stroke/TIA. Psychiatric: The patient denies psychiatric medications, denies depression, and denies voices, denies substance abuse. Endocrine: The patient denies thyroid disorders, denies diabetes, and denies hormonal problems. Hematologic: The patient denies a history of bruising, denies bleeding, and denies anemia, denies blood clots. Infections: The patient denies a history of measles and mumps, denies rheumatic fever, and denies sexually transmitted diseases. Musculoskeletal: The patient denies back pain/injury, denies back problems, denies sciatica, denies knee/foot trouble, denies arthritis, or denies gout. When was patient's last Mammogram screening? N/A Last Colonoscopy: None DAVID Heller Billie, RN 05/03/2024 5:03 PM Signed This Nurse reviewed and provided patient with copy of written instructions. The patient verbalized understanding and was given a number for questions. Danae Tao RN PHYSICAL EXAMINATION: General: The patient is 48 year old, male well nourished, well hydrated in no acute distress. The patient is oriented to time, place, and person. VITALS: Blood pressure 128/80, pulse 72, tempera (more content not included)... [facility] 02-05-2024 History of Present illness Narrative Radiology Service Progress Note PATIENT NAME: Richie Valiente DATE OF SERVICE: February 05, 2024 TIME: 8:18 AM PATIENT IDENTITY VERIFICATION COMPLETED USING TWO (2) IDENTIFIERS: Name and Date of confirmed by patient verbally. FALL SCREENING: Has the patient had 2 falls in the last year or 1 fall with injury or currently using an Ambulatory Assistive Device (Walker, Cane, Wheelchair, Crutches, etc.)? No PATIENT GENDER DATA: Male PATIENT RELEVANT IMPLANT DATA REVIEWED: Not Applicable PATIENT PRESENTS WITH AN IMPLANTABLE OR ATTACHED MARK UP DESIGNER: No RADIOLOGY DEPARTMENT: General X-ray: Exam(s) Completed: Upper Extremity X-Ray(s): Fingers/Thumb, right PERIPHERAL IV DATA: Not applicable SIGNED BY: LINDA León) February 05, 2024 8:18 AM documented in this encounter [facility] 02-05-2024 Note HNO ID: [id number] Author: BRITTON THACKER RT(Radha) Service: ? Author Type: Technologist Type: Progress Notes Filed: 02/05/2024 08:24 Note Text: Radiology Service Progress Note PATIENT NAME: Richie Valiente DATE OF SERVICE: February 05, 2024 TIME: 8:18 AM PATIENT IDENTITY VERIFICATION COMPLETED USING TWO (2) IDENTIFIERS: Name and Date of confirmed by patient verbally. FALL SCREENING: Has the patient had 2 falls in the last year or 1 fall with injury or currently using an Ambulatory Assistive Device (Walker, Cane, Wheelchair, Crutches, etc.)? No PATIENT GENDER DATA: Male PATIENT RELEVANT IMPLANT DATA REVIEWED: Not Applicable PATIENT PRESENTS WITH AN IMPLANTABLE OR ATTACHED MARK UP DESIGNER: No RADIOLOGY DEPARTMENT: General X-ray: Exam(s) Completed: Upper Extremity X-Ray(s): Fingers/Thumb, right PERIPHERAL IV DATA: Not applicable SIGNED BY: RT Mau(R) February 05, 2024 8:18 AM [facility] 02-05-2024 Note HNO ID: [id number] Author: ANNIE AUGUSTE PA Service: ? Author Type: Physician Optometric Assistant Type: Progress Notes Filed: 02/05/2024 08:40 Note Text: This note was created using vitaMedMDriter. Subjective Richie Valiente is a 48 year old male. HPI 48-year-old male presents for splinter in right thumb. Patient states he was working at home on some wood and the piece of wood jammed into his right thumb. A splinter broke off under his right thumbnail. He is having pain in the area. No drainage. This happened just 30 minutes prior to arrival. No numbness or tingling of the thumb. Normal ROM of the thumb. He is right-hand dominant. Unsure of last tetanus. Did not try to pull the splinter out at home. No other complaint. No past medical history on file. No past surgical history on file. ALLERGIES Patient has no known allergies. MEDICATIONS METOPROLOL SUCCINATE ORAL Take by mouth. FLECAINIDE ACETATE (FLECAINIDE ORAL) Take by mouth. cephALEXin (KEFLEX) 500 mg capsule Take 1 capsule by mouth four times daily for 5 days. naproxen (NAPROSYN) 500 mg tablet Take 1 tablet by mouth twice daily as needed (for pain/inflammation). Take with food. (Patient not taking: Reported on 02/05/2024) codeine-guaiFENesin (ROBITUSSIN AC) 10-100 mg/5 mL syrup Take 5-10 mL by mouth four times daily as needed for Cough. May cause drowsiness. No family history on file. Social History Tobacco Use Smoking status: Former Review of Systems Constitutional: Negative for chills and fever. HENT: Negative for congestion and sore throat. Respiratory: Negative for cough and shortness of breath. Gastrointestinal: Negative for diarrhea and vomiting. Skin: Positive for wound. Negative for color change. Objective BP 128/80 Pulse 76 Temp 36.1 ?C (96.9 ?F) Resp 16 Wt (!) 137.3 kg (302 lb 11.1 oz) SpO2 97% Physical Exam Vitals and nursing note reviewed. Constitutional: General: He is not in acute distress. Appearance: Normal appearance. He is not toxic-appearing. Musculoskeletal: Right hand: Tenderness present. No bony tenderness. Normal sensation. There is no disruption of two-point discrimination. Normal capillary refill. Normal pulse. Comments: Wood splinter protruding from under the right thumb fingernail on the lateral side. Tenderness around the splinter noted. No drainage. No bleeding. Normal ROM of the digit. Cap refill less than 2 seconds. No other foreign body seen. Skin: General: Skin is warm and dry. Neurological: Mental Status: He is alert. UNIVERSAL PROTOCOL / SAFETY CHECKLIST Procedure to be Performed: removal of FB Sign In: A Moment of CARE was completed. Personnel directly involved with the procedure wore the appropriate PPE (Personal Protective Equipment). Patient/Surrogate Stated/Verified: PATIENT VERIFIED(optional for EMERGENT procedures): Patient name, Date of , Relevant allergies, and The intended procedure Time Out Communication: Intended patient and procedure match the source documents. Consent documented and matches the intended procedure. No relevant labs, photos, and/or imaging studies were applicable for review. Sign Out: SIGN OUT (optional for EMERGENT procedures): All instruments, equipment, possible retained foreign bodies accounted for. Procedure: Wound cleansed with sterile water and Hibiclens. Iodine applied. Local infiltration with 1 mL of 2% lidocaine injected around the splinter on the distal right thumb. 1 cm wood splinter removed with forceps. Area irrigated with sterile water. No retained foreign body seen on exam. XR will be performed. Patient tolerated procedure well. No bleeding, drainage, or purulence after foreign body removed. Mupirocin and dressing applied. Assessment and Plan ASSESSMENT/PLAN: 1. Splinter - ICD9: 919.6, ICD10: T14.8XXA (primary diagnosis) - Removed. Please see procedure above. Will get XR to look for retained foreign body. - XR DIGIT GENERAL 3V FRONTAL/LAT/OBL RIGHT -no radiopaque foreign body seen. -No foreign body visualized on my examination. Did discuss with patient there is possibility of a small foreign body still being under the nail that is unable to be seen. He understands. -He will follow-up if symptoms persist. -Tetanus updated. -Rx for Keflex for prophylactic antibiotic treatment due to the dirty wood/foreign body that was under the fingernail. 2. Not up to date with diphtheria-tetanus vaccination - ICD9: V49.89, ICD10: Z28.39 - TDAP administered at visit. Diagnosis and treatment plan were discussed and questions were answered to the patient's satisfaction. Pt acknowledged understanding of concepts and follow up plan. Specific signs and symptoms that would indicate the need for higher level of care were discussed in detail warranting prompt ER evaluation. MACI De Santiago [facility] 02-05-2024 History of Present illness Narrative This note was created using vitaMedMDriter. Subjective Richie Valiente is a 48 year old male. HPI 48-year-old male presents for splinter in right thumb. Patient states he was working at home on some wood and the piece of wood jammed into his right thumb. A splinter broke off under his right thumbnail. He is having pain in the area. No drainage. This happened just 30 minutes prior to arrival. No numbness or tingling of the thumb. Normal ROM of the thumb. He is right-hand dominant. Unsure of last tetanus. Did not try to pull the splinter out at home. No other complaint. No past medical history on file. No past surgical history on file. ALLERGIES Patient has no known allergies. MEDICATIONS METOPROLOL SUCCINATE ORAL Take by mouth. FLECAINIDE ACETATE (FLECAINIDE ORAL) Take by mouth. cephALEXin (KEFLEX) 500 mg capsule Take 1 capsule by mouth four times daily for 5 days. naproxen (NAPROSYN) 500 mg tablet Take 1 tablet by mouth twice daily as needed (for pain/inflammation). Take with food. (Patient not taking: Reported on 02/05/2024) codeine-guaiFENesin (ROBITUSSIN AC) 10-100 mg/5 mL syrup Take 5-10 mL by mouth four times daily as needed for Cough. May cause drowsiness. No family history on file. Social History Tobacco Use Smoking status: Former Review of Systems Constitutional: Negative for chills and fever. HENT: Negative for congestion and sore throat. Respiratory: Negative for cough and shortness of breath. Gastrointestinal: Negative for diarrhea and vomiting. Skin: Positive for wound. Negative for color change. Objective BP 128/80 Pulse 76 Temp 36.1 C (96.9 F) Resp 16 Wt (!) 137.3 kg (302 lb 11.1 oz) SpO2 97% Physical Exam Vitals and nursing note reviewed. Constitutional: General: He is not in acute distress. Appearance: Normal appearance. He is not toxic-appearing. Musculoskeletal: Right hand: Tenderness present. No bony tenderness. Normal sensation. There is no disruption of two-point discrimination. Normal capillary refill. Normal pulse. Comments: Wood splinter protruding from under the right thumb fingernail on the lateral side. Tenderness around the splinter noted. No drainage. No bleeding. Normal ROM of the digit. Cap refill less than 2 seconds. No other foreign body seen. Skin: General: Skin is warm and dry. Neurological: Mental Status: He is alert. UNIVERSAL PROTOCOL / SAFETY CHECKLIST Procedure to be Performed: removal of FB Sign In: A Moment of CARE was completed. Personnel directly involved with the procedure wore the appropriate PPE (Personal Protective Equipment). Patient/Surrogate Stated/Verified: PATIENT VERIFIED(optional for EMERGENT procedures): Patient name, Date of , Relevant allergies, and The intended procedure Time Out Communication: Intended patient and procedure match the source documents. Consent documented and matches the intended procedure. No relevant labs, photos, and/or imaging studies were applicable for review. Sign Out: SIGN OUT (optional for EMERGENT procedures): All instruments, equipment, possible retained foreign bodies accounted for. Procedure: Wound cleansed with sterile water and Hibiclens. Iodine applied. Local infiltration with 1 mL of 2% lidocaine injected around the splinter on the distal right thumb. 1 cm wood splinter removed with forceps. Area irrigated with sterile water. No retained foreign body seen on exam. XR will be performed. Patient tolerated procedure well. No bleeding, drainage, or purulence after foreign body removed. Mupirocin and dressing applied. Assessment and Plan ASSESSMENT/PLAN: 1. Splinter - ICD9: 919.6, ICD10: T14.8XXA (primary diagnosis) - Removed. Please see procedure above. Will get XR to look for retained foreign body. - XR DIGIT GENERAL 3V FRONTAL/LAT/OBL RIGHT -no radiopaque foreign body seen. -No foreign body visualized on my examination. Did discuss with patient there is possibility of a small foreign body still being under the nail that is unable to be seen. He understands. -He will follow-up if symptoms persist. -Tetanus updated. -Rx for Keflex for prophylactic antibiotic treatment due to the dirty wood/foreign body that was under the fingernail. 2. Not up to date with diphtheria-tetanus vaccination - ICD9: V49.89, ICD10: Z28.39 - TDAP administered at visit. Diagnosis and treatment plan were discussed and questions were answered to the patient's satisfaction. Pt acknowledged understanding of concepts and follow up plan. Specific signs and symptoms that would indicate the need for higher level of care were discussed in detail warranting prompt ER evaluation. MACI De Santiago documented in this encounter [facility] Evaluation note No assessment inform ation available [facility] Work Phone: Evaluation note Diagnosis Splinter- Primary Other, multiple, and unspecified sites, superficial foreign body (splinter), without major open wound and without mention of infection Not up to date with diphtheria-tetanus vaccination Splinter Other, multiple, and unspecified sites, superficial foreign body (splinter), without major open wound and without mention of infection [facility] Diagnosis Splinter Other, multiple, and unspecified sites, superficial foreign body (splinter), without major open wound and without mention of infection [facility] Diagnosis Encounter for screening for malignant neoplasm of colon- Primary Special screening for malignant neoplasms, colon [facility] Diagnosis Encounter for screening colonoscopy- Primary Special screening for malignant neoplasms, colon Encounter for screening for malignant neoplasm of colon Special screening for malignant neoplasms, colon [facility] Diagnosis URI, acute- Primary Acute upper respiratory infections of unspecified site [facility] Diagnostic Procedure Only (Urgent) - Closed Specialty Diagnoses / Procedures Referred By Ana t Referred To Contact XR IMAGING Diagnoses Splinter Procedures XR DIGIT GENERAL 3V FRONTAL/LAT/OBL RIGHT RADEX FINGR MINIMUM 2 VIEWS [facility] [address] [place] [address] [facility] Referral ID Status Reason Start Date Expiration Date V isits Requested Visits Authorized [id number] Closed Auto-Generate d Referral 02/05/2024 03/06/2025 1 1 [facility] for referral (narrative)* Diagnostic Procedure Only (Urgent) - Closed Specialty Diagnoses / Procedures Referred By Ronaldoac t Referred To Contact XR IMAGING Diagnoses Splinter Procedures XR DIGIT GENERAL 3V FRONTAL/LAT/OBL RIGHT RADEX FINGR MINIMUM 2 VIEWS [facility] [address] [place] [address] Xr Imaging [place] [address] Referral ID Status Reason Start Date Expiration Date V isits Requested Visits Authorized [id number] Closed Auto-Generate d Referral 02/05/2024 03/06/2025 1 1 [facility] for referral (narrative)* Outpatient Procedure (Routine) - New Request Specialty Diagnoses / Procedures Referred By Contac t Referred To Contact [facility] Diagnoses Encounter for screening for malignant neoplasm of colon Procedures COLONOSCOPY SCREENING COLONOSCOPY FLX DX W/COLLJ SPEC WHEN Melanie Gupta APRN.PACS ADMINISTRATOR [address] [place] [id number] [facility] Disease [address] [address] Referral ID Status Reason Start Date Expiration Date Visits Requested Visits Authorized [id number] New Request Auto-Generat ed Referral 05/03/2024 05/03/2025 1 1 [facility] for referral (narrative)* Outpatient Procedure (Routine) - Closed Specialty Diagnoses / Procedures Referred By Ana t Referred To Contact [facility] Diagnoses Encounter for screening for malignant neoplasm of colon Procedures COLONOSCOPY SCREENING COLONOSCOPY FLX DX W/COLLJ SPEC WHEN Melanie Gupta APRN.CNP [address] [place] [address] [facility] [place] [id number] Referral ID Status Reason Start Date Expiration Date V isits Requested Visits Authorized [id number] Closed Auto-Generate d Referral 05/03/2024 05/03/2025 1 1 [facility] for visit Narrative* Diagnostic Procedure Only (Urgent) - Closed Specialty Diagnoses / Procedures Referred By Contac t Referred To Contact XR IMAGING Diagnoses Splinter Procedures XR DIGIT GENERAL 3V FRONTAL/LAT/OBL RIGHT RADEX FINGR MINIMUM 2 VIEWS [facility] [address] [place] [address] [place] [address] Referral ID Status Reason Start Date Expiration Date V isits Requested Visits Authorized [id number] Closed Auto-Generate d Referral 02/05/2024 03/06/2025 1 1 [facility] for visit Narrative* Outpatient Procedure (Routine) - Closed Specialty Diagnoses / Procedures Referred By Contac t Referred To Contact [facility] Diagnoses Encounter for screening for malignant neoplasm of colon Procedures COLONOSCOPY SCREENING COLONOSCOPY FLX DX W/COLLJ SPEC WHEN Melanie Gupta APRN.CNP [address] [place] [address] [facility] [place] [address] [place] [address] Referral ID Status Reason Start Date Expiration Date V isits Requested Visits Authorized [id number] Closed Auto-Generate d Referral 05/03/2024 05/03/2025 1 1 [facility] Chief Complaint and Reason for Visit Chief Complaint thinks in atrial fib again, no anticoag Advance Directives No Advanced Directives Records Found Advance Directive Response Recorded Date/ Time Living Will No August 25 013 1:36pm Power of Molded Goods Inspector Trimmer No August 25, 2013 1:36pm Summary Purpose Family History No Family History Records Found Additional Source Comments Care Teams (unrecognized sec tion and content) Team Status: Active Member Role Status Dates Dr. Paramjit Dillard MD Family Provider Active Dr. Laine Galan DO Primary Care Provider Active Team Status: Inactive Member Role Status Dates Dr. Paramjit Dillard MD Primary Care Provider, Refe ing Provider Active Dr. Kevin Evans MD Attending Provider Active Team Status: Inactive Member Role Status Dates Dr. Laine Galan DO Primary Care Prov ider, Attending Provider, Referring Provider Active Commercial Loan Underwriter Relationship Specialty Start Date End Date Laine Galan DO [address] [place] [address] PCP - General Family Medicine 02/05/24 Commercial Loan Underwriter Relationship Specialty Start Date End Date Laine Galan DO [address] [place] [address] PCP - General Family Medicine 02/05/24 Commercial Loan Underwriter Relationship Specialty Start Date End Date Laine Galan DO [address] [place] [address] PCP - General Family Medicine 02/05/24 Commercial Loan Underwriter Relationship Specialty Start Date End Date Laine Galan DO [address] [place] [address] PCP - General Family Medicine 02/05/24 Commercial Loan Underwriter Relationship Specialty Start Date End Date Laine Galan DO [address] [place] [address] PCP - General Family Medicine 02/05/24 Goals (unrecognized section and content) Goals may be documented in a n alternate section Source Comments (unrecognize d section and content) In the event this informatio n is protected by the Federal Confidentiality of Alcohol and Drug Abuse Patient Records regulations: The Federal rules restrict any use of the information to criminally investigate or prosecute any alcohol or drug abuse patient.[facility] the event this information is protected by the Federal Confidentiality of Alcohol and Drug Abuse Patient Records regulations: The Federal rules restrict any use of the information to criminally investigate or prosecute any alcohol or drug abuse patient.[facility] the event this information is protected by the Federal Confidentiality of Alcohol and Drug Abuse Patient Records regulations: The Federal rules restrict any use of the information to criminally investigate or prosecute any alcohol or drug abuse patient.[facility] the event this information is protected by the Federal Confidentiality of Alcohol and Drug Abuse Patient Records regulations: The Federal rules restrict any use of the information to criminally investigate or prosecute any alcohol or drug abuse patient.[facility] the event this information is protected by the Federal Confidentiality of Alcohol and Drug Abuse Patient Records regulations: The Federal rules restrict any use of the information to criminally investigate or prosecute any alcohol or drug abuse patient.[facility] Reason for Visit (unrecogniz ed section and content) Reason Comments Foreign Body wood splinter in rig ht thumb under fingernail x 30 mins Reason Comments Consult Colonoscopy consult. Reason Comments Cough Light headed, conges tion, sob x 2 days (unrecognized sect ion and content) No Status Records FoundNo Status Records Found INFORMATION SOURCE (unrecogn ized section and content) DATE CREATED AUTHOR 10/21/2024 [facility] DATE CREATED AUTHOR AUTHOR'S ANMOL CORTEZ 07/04/2025 [facility] FOR RECORDS PERTAINING TO PATIENTS WHO ARE OR HAVE BEEN ENROLLED IN A CHEMICAL DEPENDENCY/SUBSTANCEABUSE PROGRAM, SOME INFORMATION MAY BE OMITTED. This clinical summary was aggregated from multiple sources. Caution should be exercised in using it in the provision of clinical care. This summary normalizes information from multiple sources, and as a consequence, information in this document may materially change the coding, format and clinical context of patient data. In addition, data may be omitted in some cases. CLINICAL DECISIONS SHOULD BE BASED ON THE PRIMARY CLINICAL RECORDS. [employer] provides no warranty or guarantee of the accuracy or completeness of information in this document.
[2025-07-10 12:09] LABS: Testosterone, % Free 2.67 % (1.50-4.20); Testosterone, Free 8.92 ng/dL (5.00-21.00)
== END | disposition home or self-care (01) ==
LOC: LAB 09:16
PROVIDERS: PCP Family Medicine; Referring Provider Family Medicine; Visit Provider Family Medicine
DX: N52.9 Male erectile dysfunction, unspecified (principal)
CPT/HCPCS: 36415; 84402; 84403